=== PATIENT | male | born 1995 | race Caucasian/White ===

== ENCOUNTER → 2017-07-19 | Day surgery (SDC) | payer BC ==
[~2017-07-19] VITALS: Ht 182.9 cm; Wt 68.2 kg
[~2017-07-19] MED LIST: IBUP-103 PO; LIDOCAINE HCL 2% 2 ML VIAL (20MG/ML) ONE; MIDAZOLAM HCL 1 MG/ML 2ML VIAL ONE; ONDANSETRON INJ 2 MG/ML 2 ML VIAL ONE; PROPOFOL IV EMULSION 10 MG/ML 20 ML VIAL IV ONE
[2017-07-19 11:35] VITALS: Ht 182.9 cm; Wt 68.2 kg
--- NOTE | 2017-07-19 12:25 | Endo History and Physical ---
History & Physical Date of Service: Jul 19, 2017. Chief Complaint: NAUSEA DIARRHEA ABD PAIN Referring Physician: NONE YET History of Present Illness 22 yo CM who presents for EGD and Colonoscopy secondary to nausea, diarrhea and abdominal pain. Past Surgical History Hx Cardiac Surgery: No Hx Internal Defibrillator: No Hx Pacemaker: No Hx Abdominal Surgery: Yes (APPY) Hx of Implantable Prosthesis: No Hx Post-Op Nausea and Vomiting: No Hx Cancer Surgery: No Hx Thoracic Surgery: No Hx Orthopedic: No Hx Urinary Tract Surgery: No Family History Polyp, IBD Social History Smoking Status: Current Some Day Smoker Hx Substance Use: Yes (MARIJUANA USE OCCASIONALLY) Hx Alcohol Use: Yes (OCCASIONALLY) Allergies Coded Allergies: Amoxicillin (Verified Allergy, Unknown, childhood allergy, 07/19/17) Cefprozil (Verified Allergy, Unknown, childhood allergy, 07/19/17) Penicillins (Verified Allergy, Unknown, childhood allergy, 07/19/17) Current Medications Reported Home Medications Medications Dose Route/Sig Max Daily Dose Days Date Category Advil (Ibuprofen) 200 Mg Tab 200 Mg PO PRN 07/19/17 Reported Vital Signs Weight (Kilograms): 68.18 Height (Feet): 6 Height (Inches): 0 Date Time Temp Pulse Resp B/P (MAP) Pulse Ox O2 Delivery O2 Flow Rate FiO2 07/19/17 11:45 37.1 68 20 118/79 (92) 97 Room Air Physical Exam General Appearance: WD/WN, no apparent distress Respiratory/Chest: Auscultation: breath sounds normal Cardiovascular: Heart Auscultation: RRR Abdomen: Bowel Sounds: normal Inspection & Palpation: soft, non-distended, no tenderness, guarding & rebound Assessment and Plan Assessment: 22 yo CM who presents for EGD and Colonoscopy secondary to nausea, diarrhea and abdominal pain. Plan: Proceed with EGD and Colonoscopy.
--- NOTE | 2017-07-19 13:30 | Anesthesiology Progress Note ---
Anesthesia Post Op Note Date & Time Jul 19, 2017 at 13:30 Vital Signs Vital Signs Past 12 Hours Date Time Temp Pulse Resp B/P (MAP) Pulse Ox O2 Delivery O2 Flow Rate FiO2 07/19/17 11:45 37.1 68 20 118/79 (92) 97 Room Air Notes Mental Status: alert / awake / arousable, participated in evaluation Pt Amnestic to Procedure: Yes Nausea / Vomiting: adequately controlled Pain: adequately controlled Airway Patency, RR, SpO2: stable & adequate BP & HR: stable & adequate Hydration State: stable & adequate Anesthetic Complications: no major complications apparent
--- NOTE | 2017-07-19 13:30 | Discharge Instructions ---
Endoscopy Patient Instructions Date / Procedure(s) Performed Jul 19, 2017. Colonoscopy, EGD Allergy Information Coded Allergies: Amoxicillin (Verified Allergy, Unknown, childhood allergy, 07/19/17) Cefprozil (Verified Allergy, Unknown, childhood allergy, 07/19/17) Penicillins (Verified Allergy, Unknown, childhood allergy, 07/19/17) Discharge Date / Findings Jul 19, 2017. EGD: Normal Colonoscopy: Random colon biopsies, Sigmoid colon polyp, Internal hemorrhoids Medication Instructions OK to resume all medications today as prescribed Reported Home Medications Medications Dose Route/Sig Max Daily Dose Days Date Category Advil (Ibuprofen) 200 Mg Tab 200 Mg PO PRN 07/19/17 Reported Provider Instructions Activity Restrictions - No exercising or heavy lifting for 24 hours. - Do not drink alcohol the day of the procedure. - Do not drive a car or operate machinery until the day after the procedure. - Do not make any important decisions or sign important papers in 24 hours after the procedure. Following Day: - Return to full activity which may include returning to work/school. Diet Start your diet with liquids and light foods (jello, soup, juice, toast). Then eat your usual diet if not nauseated. Treatment For Common After Affects For mild abdominal pain, bloating, or excessive gas: - Rest - Eat lightly - Lie on right side Follow-Up Information Follow-up with NONE YET as scheduled Anesthesia Information What You Should Know You have had a procedure that required some medicine to reduce anxiety and discomfort. This treatment is called moderate sedation. After receiving the treatment, you may be sleepy, but you will be able to breathe on your own. The effects of the treatment may last for several hours. Follow these instructions along with Activity/Diet recommendations noted above: * Do NOT do anything where dizziness or clumsiness would be dangerous. * Rest quietly at home today, then you can be up and about tomorrow. * Have a responsible person stay with you the rest of today. * You may have had an I.V. today. If so, you may take the dressing off later today. Recommendations Call your doctor if: * Trouble breathing * Continuous vomiting for more than 24 hours * Temperature above 101 degrees * Severe abdominal pain or bloating * Pain not relieved by pain medicine ordered * There is increased drainage or redness from any incision * A large amount of rectal bleeding greater than 2-3 tablespoons. (If you had a polyp/s removed or have hemorrhoids, a small amount of blood - from the rectum is to be expected.) * You have any unanswered questions or concerns. IN THE EVENT OF A SERIOUS EMERGENCY, GO TO THE NEAREST EMERGENCY ROOM Your discharge instructions were prepared by provider Baltazar Mcgarry. Patient Instructions Signature Page Mateusz Mosher Patient (or Guardian) Signature/Date: I have read and understand the instructions given to me by my caregivers. Caregiver/RN/Doctor Signature/Date: The above-named patient and/or guardian has received patient instructions on this date. + Original Patient Signature Page (only) stays with chart. Please make copy for patient.
--- NOTE | 2017-07-19 13:35 | GI REPORT ---
Procedure Date: 07/19/2017 12:36 PM THIS REPORT HAS BEEN AMENDED Addendum Number: 1 Addendum Date: 07/30/2017 10:10:53 PM Gastric antrum biopsies were obtained during this exam, therefore, please refer to the pathology report. Procedure: Upper GI endoscopy Indications: Generalized abdominal pain, Nausea with vomiting Medicines: Monitored Anesthesia Care Complications: No immediate complications. Estimated Blood Loss: Estimated blood loss: none. Procedure: Pre-Anesthesia Assessment: - Prior to the procedure, a History and Physical was performed, and patient medications and allergies were reviewed. The patient's tolerance of previous anesthesia was also reviewed. The risks and benefits of the procedure and the sedation options and risks were discussed with the patient. All questions were answered, and informed consent was obtained. Prior Anticoagulants: The patient has taken no previous anticoagulant or antiplatelet agents. ASA Grade Assessment: II - A patient with mild systemic disease. After reviewing the risks and benefits, the patient was deemed in satisfactory condition to undergo the procedure. After obtaining informed consent, the endoscope was passed under direct vision. Throughout the procedure, the patient's blood pressure, pulse, and oxygen saturations were monitored continuously. The scope was introduced through the mouth, and advanced to the second part of duodenum. The upper GI endoscopy was accomplished without difficulty. The patient tolerated the procedure well. Findings: The esophagus was normal. The stomach was normal. The examined duodenum was normal. Impression: - Normal esophagus. - Normal stomach. - Normal examined duodenum. - No specimens collected. Recommendation: - Resume previous diet. - Continue present medications. - Perform a colonoscopy today. - Return to GI office as previously scheduled. Baltazar Castellano Zeferino, 07/19/2017 1:35:04 PM This report has been signed electronically. Note Initiated On: 07/19/2017 12:36 PM I attest to the content of the Intraoperative Record and orders documented therein, exceptions below Baltazar Castellano Zeferino, DO 07/30/2017 10:11:24 PM This report has been signed electronically.
--- NOTE | 2017-07-19 13:39 | GI REPORT ---
Procedure Date: 07/19/2017 12:36 PM Procedure: Colonoscopy Indications: Chronic diarrhea Medicines: Monitored Anesthesia Care Complications: No immediate complications. Estimated Blood Loss: Estimated blood loss: none. Procedure: Pre-Anesthesia Assessment: - Prior to the procedure, a History and Physical was performed, and patient medications and allergies were reviewed. The patient's tolerance of previous anesthesia was also reviewed. The risks and benefits of the procedure and the sedation options and risks were discussed with the patient. All questions were answered, and informed consent was obtained. Prior Anticoagulants: The patient has taken no previous anticoagulant or antiplatelet agents. ASA Grade Assessment: II - A patient with mild systemic disease. After reviewing the risks and benefits, the patient was deemed in satisfactory condition to undergo the procedure. After I obtained informed consent, the scope was passed under direct vision. Throughout the procedure, the patient's blood pressure, pulse, and oxygen saturations were monitored continuously. The scope was introduced through the anus and advanced to the terminal ileum. The colonoscopy was performed without difficulty. The patient tolerated the procedure well. The quality of the bowel preparation was good. The terminal ileum, ileocecal valve, appendiceal orifice, and rectum were photographed. Findings: A 5 mm polyp was found in the sigmoid colon. The polyp was sessile. The polyp was removed with a hot snare. Resection and retrieval were complete. Non-bleeding internal hemorrhoids were found during retroflexion. The hemorrhoids were small. Several random biopsies were obtained with cold forceps for histology in the entire colon. Fluid aspiration for cytology was performed in the entire colon. Impression: - One 5 mm polyp in the sigmoid colon, removed with a hot snare. Resected and retrieved. - Non-bleeding internal hemorrhoids. - Several random biopsies were obtained in the entire colon. - Fluid aspiration was performed. Recommendation: - Resume previous diet. - Continue present medications. - Repeat colonoscopy for surveillance based on pathology results. - Return to primary care physician. - Return to GI office as previously scheduled. Baltazar Mcgarry DO 07/19/2017 1:38:37 PM This report has been signed electronically. Note Initiated On: 07/19/2017 12:36 PM I attest to the content of the Intraoperative Record and orders documented therein, exceptions below
[2017-07-19 13:59] VITALS: BP 101/69; PULSE 64; O2SAT 98
== END | disposition home or self-care (01) ==
LOC: C.GI 11:20
PROVIDERS: ATTEND Internal Medicine
DX: R11.0 Nausea (principal); R19.7 Diarrhea, unspecified; K29.70 Gastritis, unspecified, without bleeding; D12.5 Benign neoplasm of sigmoid colon; K64.8 Other hemorrhoids; R10.9 Unspecified abdominal pain; Z90.89 Acquired absence of other organs; Z83.71 Family history of colonic polyps; F17.200 Nicotine dependence, unspecified, uncomplicated

== ENCOUNTER 2019-07-15 17:41 | Inpatient (IN) ==
--- OUTSIDE RECORDS SUMMARY | 2019-07-15 17:44 | External Medical Summary | Continuity of Care Document ---
:1995 Author Name Masood Jordan Address Unavailable Unavailable , Care Team Providers Name Role Phone Humaira Jordan Unavailable [email or web address] PCP, NO Unavailable Unavailable Unavailable Unavailable Unavailable Problems Gastritis (535.50) (K29.70) Internal hemorrhoids (455.0) (K64.8) Hyperplastic colon polyp (211.3) (K63.5) Nausea and vomiting (787.01) (R11.2) Epigastric pain (789.06) (R10.13) Diarrhea (787.91) (R19.7) Allergies and Adverse Reactions Amoxicillin TABS (Allergy) Cefzil (Allergy) Penicillins (Allergy) Medications Medications not documented Procedures Procedures not documented Immunizations Immunizations not documented Family History Father Family history of Diverticulitis (562.11) (K57.92) Status: A ctive Social History - Smoking Status Smoker. current status unknown Plan of Treatment Planned Observations Planned Goals not documented Results No Known Results Results not documented Encounters Appointment; Marie Merritt PA-C 05-Aug-2017 13:00 Encounter Diagnosis: Problem not documented
[2019-07-15 18:49] LABS: Basophils # (auto) 0.05 K/uL (0-0.2); Basophils % (auto) 0.4 %; Eosinophils # (auto) 0.15 K/uL (0-0.5); Eosinophils % (auto) 1.3 %; Hematocrit (blood only) 43.5 % (42-52); Hemoglobin 15.7 g/dL (14.0-18.0); Immature Granulocytes # (auto) 0.02 K/uL (0.00-0.02); Immature Granulocytes % (auto) 0.2 %; Lymphocytes # (auto) 3.34 K/uL (1.2-3.4); Lymphocytes % (auto) 28.2 %; Mean Corpuscular Hemoglobin 31.3 pg (25-34); Mean Corpuscular Hgb Conc 36.1 g/dL (32-36); Mean Corpuscular Volume 86.7 fL (80-100); Mean Platelet Volume 9.2 fL (7.4-10.4); Monocytes % (auto) 6.8 %; Neutrophils # (auto) 7.48 K/uL (1.4-6.5); Neutrophils % (auto) 63.1 %; Platelet Count 230 K/uL (130-400); RDW Coefficient of Variation 12.8 % (11.5-14.5); RDW Standard Deviation 40.9 fL (36.4-46.3); Red Blood Count 5.02 M/uL (4.7-6.1); White Blood Count 11.84 K/uL (4.8-10.8)
[2019-07-15 19:05] LABS: Albumin Level 4.7 gm/dl (3.4-5.0); BUN Creatinine Ratio 13.1 (10-20); Calcium 9.9 mg/dl (8.5-10.1); Creatinine Clr Calc Pharmacy 98.5 ml/min; Est GFR (African American) 119.3; Est GFR (Non-African American) 102.9
[2019-07-15 19:15] LABS: Acetaminophen < 2 ug/ml (10-30); Albumin Globulin Ratio 1.3 (0.9-2); Bilirubin,Total 1.7 mg/dl (0.2-1); Globulin 3.7 gm/dl (2.5-4.0); Thyroid Stimulating Hormone 0.689 uIu/ml (0.300-4.500); Total Protein 8.4 gm/dl (6.4-8.2)
[2019-07-15 19:16] LABS: Salicylate < 1.7 mg/dl (2.8-20)
[2019-07-15 20:57] LABS: Appearance Urine Clear (Clear); Bacteria Urine Automated Negative (Negative); Blood Urine Negative (Negative); Color Urine Orange; Glucose Urine UA Negative (Negative); Ketones Urine Trace (Negative); Leukocyte Esterase Urine Trace (Negative); Nitrite Urine Negative (Negative); Protein Urine 1+ (Negative); RBC Urine Automated 0-4 /hpf (0-4); Specific Gravity Urine 1.029 (1.000-1.030); Urobilinogen Urine Negative (Negative)
[2019-07-15 21:11] LABS: Amphetamines+Metham, Urine Neg (Neg); Barbiturates, Urine Neg (Neg); Benzodiazepine, Urine Neg (Neg); Cocaine, Urine Neg (Neg); MDMA (Ecstacy), Urine Neg (Neg); Methadone, Urine Neg (Neg); Opiate, Urine Neg (Neg); Phencyclidine, Urine Neg (Neg)
[2019-07-15 21:12] LABS: Bilirubin Urine Negative (Negative); Ictotest Urine Negative (Negative)
[2019-07-15] MEDS ORDERED: ALUMINUM/MAGNESIUM SUSP 30 ML UDC PO PRN (22:24)
[2019-07-15] MEDS ORDERED: SODIUM CHLORIDE 0.65% NA SOLN 45 ML (OCEAN) PRN (22:24)
[2019-07-15] MEDS ORDERED: ACETAMINOPHEN 325 MG TAB PO PRN (22:24)
[2019-07-15] MEDS ORDERED: BISMUTH SUBSALICYLATE PER ML OMNICELL CHARGE PO PRN (22:24)
[2019-07-15] MEDS ORDERED: MAGNESIUM HYDROXIDE SUSP 30 ML UDC PO PRN (22:24)
--- NOTE | 2019-07-15 23:59 | Emergency Department Note ---
Entered by Cherelle Reid acting as a scribe for History of Present Illness General Chief complaint: Mental Health Evaluation Stated complaint: MENTAL HEALTH EVAL Source: patient History of Present Illness Onset (ago): week(s) 3 Location: head, upper extremity and lower extremity Pain Consistency: + other (worsening (thoughts of depression and SI) ) Quality: + other (mental health evaluation) Exacerbated By: + other (a breakup at the beginning of summer) Associated symptoms: + other (Positive SI) The patient is a 23 year old male who presents to the ED for a mental health evaluation. He states for the past 3 weeks, he has had worsening thoughts of depression and suicidal ideations. He states he has a history of depression which worsened when he went through a breakup at the beginning of summer however for the past 3 weeks, he has had incessant thoughts of wanting to kill himself every day. He reports this morning, "he had another bad morning" and was lying in bed holding a knife to his throat. He reports this is not the first time he has had a plan and he has had "very damaging actions over the past 3 weeks." The patient states that he has had suicidal ideations in the past. He describes these as taking pills and then forcing himself to throw up, holding a knife against his throat, wrists, and stomach, and driving on the highways and thinking about driving into a tree. The patient states he normally smokes pot and 1.5 weeks ago, he stopped. Pt denies recent cutting, taking excessive doses of aspirin or other medications. Allergies Allergy/AdvReac Type Severity Reaction Status Date / Time amoxicillin Allergy Unknown childhood Verified 07/19/17 11:33 allergy cefprozil Allergy Unknown childhood Verified 07/19/17 11:33 allergy Penicillins Allergy Unknown childhood Verified 07/19/17 11:33 allergy Past Med/Surg History Medical History Depression (Chronic) Surgical History No significant past surgical history Family History Other No pertinent family history Social History Feels Safe at Home: Yes Smoking Status: Unknown if ever smoked Review of Systems See HPI for pertinent positives & negatives. and A total of 10 systems reviewed and were otherwise negative Physical Exam Vital Signs Vital Signs - 24 hr 07/15/19 17:43 07/15/19 19:53 Temperature 36.6 C Temperature Source Oral Sepsis Recent Fever Within 48 Hours No Sepsis Action Taken by Nursing No Action Required Pulse Rate 70 Respiratory Rate 18 20 Respiratory Effort / Characteristics Non-Labored Respiratory Depth Normal Respiratory Pattern Regular Blood Pressure 150/72 H Blood Pressure [Right Arm] 137/94 Blood Pressure Mean 98 Blood Pressure Mean [Right Arm] 108 Blood Pressure Position Sitting Pulse Oximetry 96 98 Oxygen Delivery Method Room Air Room Air Vital signs reviewed. General: Well-appearing male, in no significant distress. HEENT: No scleral icterus, PERRLA, neck supple. Atraumatic. Cardiovascular: Regular rate and rhythm, no extra sounds. Pulmonary: Clear to auscultation bilaterally, normal work of breathing. Abdomen: Soft, nontender, nondistended, positive bowel sounds. Musculoskeletal: Atraumatic, no peripheral edema. Neurologic: Patient awake alert and oriented x 3. Skin: Warm, dry, no rash PSYCH: Positive SI. Negative HI. Course 180: Past medical records reviewed. The patient was evaluated in room A6. A complete history and physical exam was performed. 0000: Discussed the patient's case with [facility]. The patient will be evaluated there for further management. Medical Decision Making Differential Diagnosis Differential diagnosis: Etiologies such as mood disorder, infection, hypoglycemia, electrolyte abnormalities, cardiac sources, intracerebral event, toxicologic, neurologic, as well as others were entertained. Medical Records Attestation: I reviewed the patient's medical records. Home Medications Current Medication List: was personally reviewed by me Laboratory Data Attestation: I reviewed the patient's lab results. Result diagrams: 07/15/19 18:29 07/15/19 18:29 Lab Results 07/15/19 07/15/19 07/15/19 Range/Units 18:29 18:29 18:29 WBC 11.84 H (4.8-10.8) K/uL RBC 5.02 (4.7-6.1) M/uL Hgb 15.7 (14.0-18.0) g/dL Hct 43.5 (42-52) % MCV 86.7 (80-100) fL MCH 31.3 (25-34) pg MCHC 36.1 H (32-36) g/dL RDW Std Deviation 40.9 (36.4-46.3) fL RDW Coeff of Marquis 12.8 (11.5-14.5) % Plt Count 230 (130-400) K/uL MPV 9.2 (7.4-10.4) fL Immature Gran % (Auto) 0.2 % Neut % (Auto) 63.1 % Lymph % (Auto) 28.2 % [place] % (Auto) 6.8 % Eos % (Auto) 1.3 % Baso % (Auto) 0.4 % Immature Gran # (Auto) 0.02 (0.00-0.02) K/uL Neut # (Auto) 7.48 H (1.4-6.5) K/uL Lymph # (Auto) 3.34 (1.2-3.4) K/uL [place] # (Auto) 0.80 H (0.11-0.59) K/uL Eos # (Auto) 0.15 (0-0.5) K/uL Baso # (Auto) 0.05 (0-0.2) K/uL Sodium 140 (136-145) mmol/L Potassium 4.0 (3.5-5.1) mmol/L Chloride 106 (98-107) mmol/L Carbon Dioxide 29 (21-32) mmol/L Anion Gap 6.0 (3-11) BUN 13 (7-18) mg/dl Creatinine 1.01 (0.6-1.4) mg/dl Est Cr Clr Drug Dosing 98.5 ml/min Est GFR ( Amer) 119.3 Est GFR (Non-Af Amer) 102.9 BUN/Creatinine Ratio 13.1 (10-20) Glucose 81 (70-99) mg/dl Calcium 9.9 (8.5-10.1) mg/dl Total Bilirubin 1.7 H (0.2-1) mg/dl AST 14 L (15-37) U/L ALT 21 (12-78) U/L Alkaline Phosphatase 94 (45-117) U/L Total Protein 8.4 H (6.4-8.2) gm/dl Albumin 4.7 (3.4-5.0) gm/dl Globulin 3.7 (2.5-4.0) gm/dl Albumin/Globulin Ratio 1.3 (0.9-2) TSH 0.689 (0.300-4.500) uIu/ml Urine Color Urine Appearance (Clear) Urine pH (4.5-7.5) Ur Specific [place] (1.000-1.030) Urine Protein (Negative) Urine Glucose (UA) (Negative) Urine Ketones (Negative) Urine Blood (Negative) Urine Nitrite (Negative) Urine Bilirubin (Negative) Urine Urobilinogen (Negative) Ur Leukocyte Esterase (Negative) Urine WBC (Auto) (0-5) /hpf Urine RBC (Auto) (0-4) /hpf U Hyaline Cast (Auto) (0-5) /lpf U Epithel Cells (Auto) (0-5) /lpf Urine Bacteria (Auto) (Negative) Nasal Screen MRSA (PCR) (Negative) Salicylates < 1.7 L (2.8-20) mg/dl Urine Opiates Screen (Neg) Ur Methadone, Qual (Neg) Acetaminophen < 2 L (10-30) ug/ml Urine Barbiturates (Neg) Ur Phencyclidine (PCP) (Neg) U Amphetamin/Meth Scrn (Neg) MDMA (Ecstasy) Screen (Neg) U Benzodiazepines Scrn (Neg) Ur Cocaine Metabolite (Neg) U Marijuana (THC) Screen (Neg) Ethyl Alcohol mg/dL (0-3) mg/dl 07/15/19 07/15/19 07/15/19 Range/Units 18:29 20:25 20:25 WBC (4.8-10.8) K/uL RBC (4.7-6.1) M/uL Hgb (14.0-18.0) g/dL Hct (42-52) % MCV (80-100) fL MCH (25-34) pg MCHC (32-36) g/dL RDW Std Deviation (36.4-46.3) fL RDW Coeff of Marquis (11.5-14.5) % Plt Count (130-400) K/uL MPV (7.4-10.4) fL Immature Gran % (Auto) % Neut % (Auto) % Lymph % (Auto) % [place] % (Auto) % Eos % (Auto) % Baso % (Auto) % Immature Gran # (Auto) (0.00-0.02) K/uL Neut # (Auto) (1.4-6.5) K/uL Lymph # (Auto) (1.2-3.4) K/uL [place] # (Auto) (0.11-0.59) K/uL Eos # (Auto) (0-0.5) K/uL Baso # (Auto) (0-0.2) K/uL Sodium (136-145) mmol/L Potassium (3.5-5.1) mmol/L Chloride (98-107) mmol/L Carbon Dioxide (21-32) mmol/L Anion Gap (3-11) BUN (7-18) mg/dl Creatinine (0.6-1.4) mg/dl Est Cr Clr Drug Dosing ml/min Est GFR ( Amer) Est GFR (Non-Af Amer) BUN/Creatinine Ratio (10-20) Glucose (70-99) mg/dl Calcium (8.5-10.1) mg/dl Total Bilirubin (0.2-1) mg/dl AST (15-37) U/L ALT (12-78) U/L Alkaline Phosphatase (45-117) U/L Total Protein (6.4-8.2) gm/dl Albumin (3.4-5.0) gm/dl Globulin (2.5-4.0) gm/dl Albumin/Globulin Ratio (0.9-2) TSH (0.300-4.500) uIu/ml Urine Color [place] Urine Appearance Clear (Clear) Urine pH 5.0 (4.5-7.5) Ur Specific [place] 1.029 (1.000-1.030) Urine Protein 1+ H (Negative) Urine Glucose (UA) Negative (Negative) Urine Ketones Trace H (Negative) Urine Blood Negative (Negative) Urine Nitrite Negative (Negative) Urine Bilirubin Negative (Negative) Urine Urobilinogen Negative (Negative) Ur Leukocyte Esterase Trace H (Negative) Urine WBC (Auto) 1-5 (0-5) /hpf Urine RBC (Auto) 0-4 (0-4) /hpf U Hyaline Cast (Auto) 10-30 H (0-5) /lpf U Epithel Cells (Auto) 10-20 H (0-5) /lpf Urine Bacteria (Auto) Negative (Negative) Nasal Screen MRSA (PCR) (Negative) Salicylates (2.8-20) mg/dl Urine Opiates Screen Neg (Neg) Ur Methadone, Qual Neg (Neg) Acetaminophen (10-30) ug/ml Urine Barbiturates Neg (Neg) Ur Phencyclidine (PCP) Neg (Neg) U Amphetamin/Meth Scrn Neg (Neg) MDMA (Ecstasy) Screen Neg (Neg) U Benzodiazepines Scrn Neg (Neg) Ur Cocaine Metabolite Neg (Neg) U Marijuana (THC) Screen Pos H (Neg) Ethyl Alcohol mg/dL < 3.0 (0-3) mg/dl 07/15/19 Range/Units 23:21 WBC (4.8-10.8) K/uL RBC (4.7-6.1) M/uL Hgb (14.0-18.0) g/dL Hct (42-52) % MCV (80-100) fL MCH (25-34) pg MCHC (32-36) g/dL RDW Std Deviation (36.4-46.3) fL RDW Coeff of Marquis (11.5-14.5) % Plt Count (130-400) K/uL MPV (7.4-10.4) fL Immature Gran % (Auto) % Neut % (Auto) % Lymph % (Auto) % [place] % (Auto) % Eos % (Auto) % Baso % (Auto) % Immature Gran # (Auto) (0.00-0.02) K/uL Neut # (Auto) (1.4-6.5) K/uL Lymph # (Auto) (1.2-3.4) K/uL [place] # (Auto) (0.11-0.59) K/uL Eos # (Auto) (0-0.5) K/uL Baso # (Auto) (0-0.2) K/uL Sodium (136-145) mmol/L Potassium (3.5-5.1) mmol/L Chloride (98-107) mmol/L Carbon Dioxide (21-32) mmol/L Anion Gap (3-11) BUN (7-18) mg/dl Creatinine (0.6-1.4) mg/dl Est Cr Clr Drug Dosing ml/min Est GFR ( Amer) Est GFR (Non-Af Amer) BUN/Creatinine Ratio (10-20) Glucose (70-99) mg/dl Calcium (8.5-10.1) mg/dl Total Bilirubin (0.2-1) mg/dl AST (15-37) U/L ALT (12-78) U/L Alkaline Phosphatase (45-117) U/L Total Protein (6.4-8.2) gm/dl Albumin (3.4-5.0) gm/dl Globulin (2.5-4.0) gm/dl Albumin/Globulin Ratio (0.9-2) TSH (0.300-4.500) uIu/ml Urine Color Urine Appearance (Clear) Urine pH (4.5-7.5) Ur Specific [place] (1.000-1.030) Urine Protein (Negative) Urine Glucose (UA) (Negative) Urine Ketones (Negative) Urine Blood (Negative) Urine Nitrite (Negative) Urine Bilirubin (Negative) Urine Urobilinogen (Negative) Ur Leukocyte Esterase (Negative) Urine WBC (Auto) (0-5) /hpf Urine RBC (Auto) (0-4) /hpf U Hyaline Cast (Auto) (0-5) /lpf U Epithel Cells (Auto) (0-5) /lpf Urine Bacteria (Auto) (Negative) Nasal Screen MRSA (PCR) Negative (Negative) Salicylates (2.8-20) mg/dl Urine Opiates Screen (Neg) Ur Methadone, Qual (Neg) Acetaminophen (10-30) ug/ml Urine Barbiturates (Neg) Ur Phencyclidine (PCP) (Neg) U Amphetamin/Meth Scrn (Neg) MDMA (Ecstasy) Screen (Neg) U Benzodiazepines Scrn (Neg) Ur Cocaine Metabolite (Neg) U Marijuana (THC) Screen (Neg) Ethyl Alcohol mg/dL (0-3) mg/dl Blood Pressure Blood Pressure Findings: Elevated blood pressure Blood Pressure Disposition: further management by hospitalist MDM Narrative This patient was evaluated and appeared to be in no distress. Patient was medically cleared and evaluated by the mental health protective services case worker. Patient did confirm to both myself and the protective services case worker that he had a knife to his throat earlier today. He admits to medication overdose in the past. Patient initially stated he would be willing to have inpatient treatment however became agitated and stated he "would not be imprisoned." Patient did not seem willing for treatment at this time. The 302 was completed as he denied voluntary admission. Patient was accepted to [facility] for further inpatient management. Impression & Plan Suicidal ideation Discharge Plan Visit Data Chief Complaint: Mental Health Evaluation Stated Complaint: MENTAL HEALTH EVAL ED Provider: Cat Curran Discharge Problem: Suicidal ideation Patient Disposition: Admitted As Inpatient Forms Stand Alone Forms: My [facility] Referrals Referrals: [facility] [Primary Care Provider] - The scribe's documentation has been prepared under my direction and personally reviewed by me in its entirety. I confirm that the note above accurately reflects all work, treatment, procedures, and medical decision making performed by me.
--- NOTE | 2019-07-16 09:55 | History & Physical ---
Date of Service July 16, 2019 Impression / Recommendations Impression 23-year-old single male with a history of depression and cannabis abuse who has not been in treatment for about 8 years, and presents with worsening depression, daily suicidal thoughts, and multiple suicidal gestures. He reports multiple plans for suicide and has been holding a knife to various parts of his body on a daily basis and contemplating ending his life. He has a history of multiple suicide attempts by overdose, for which he did not seek treatment. He was involuntarily committed in the ER, and is very angry about this, to the degree that we were unable to complete his assessments today. He does indicate a willingness to participate in groups, take medications, have a family meeting, and be referred for outpatient treatment, but has not yet been able to do these things and has been focused on his anger. If he is unable to make progress in treatment by tomorrow, we should consider filing for a 303 involuntary commitment with a hearing on Saturday, as he is at imminent risk for suicide if n ot adequately treated. He has been encouraged to engage in treatment and work with staff, but has been resistant to this. Inpatient treatment is medically necessary due to the severity of his symptoms and risk for suicide if discharged. (1) Suicidal ideation: Every 15 minute checks for safety Inpatient treatment as below Present on Admission?: Yes (2) Depression: 07/16 -patient meets criteria for major depressive disorder, which he reports has been ongoing for many years, and for which he has not received treatment since high school. Reports failure of 2 previous SSRI trials, so discussed a trial of venlafaxine XR. Reviewed risks, benefits, side effects, and provided him with an up-to-date patient handout on the medication. Unfortunately, he became increasingly agitated and we were unable to complete the discussion, but this can be revisited once he has calmed down. -Recommend family meeting with parents, and ask social work to obtain collateral from them regarding his past history. Suspect ASD versus PD comorbidity. -Continue involuntary commitments on a 302, consider need to file for 303 involuntary commitment. -Encourage patient to attend and participate in groups and therapy, work on healthy coping skills and discharge safety plan. -Refer for outpatient psychiatric care and therapy. Present on Admission?: Yes (3) Cannabis abuse: Patient stopped smoking marijuana recently due to concerns it was worsening mood and suicidal thoughts. Continue to provide education and support of abstinence. Avoid prescription of controlled substances. Present on Admission?: Yes Inventory Assets Strengths: Supportive friends, willing for outpatient treatment Needs: Engagement in treatment, collateral information to clarify diagnoses Risk Factors Assessment Male: Yes : Yes Health Problems: No Mental Health Diagnoses: Yes Substance Use Disorders: Yes Previous Attempt: Yes Previous Attempt; Planned: Yes Previous Attempt; Didn't Tell Anyone: Yes Family History of Suicide: Yes Previous Psychiatric Hospitalization: No Hopelessness: Yes Smoker: No Protective Factors Assessment : No Responsible for Young Children: No Employed: No Stable Relationships: No Supportive Family: Yes Good Rapport with Provider: No Psychiatric History Identifying Data AMANDA BELL is a 23-year-old M who currently lives in [place] with his ex-girlfriend, has a history of depression, cannabis abuse, and self injurious behavior, and was admitted on 07/15/19 22:24 on a 302 involuntary commitment for depression, suicidal ideation, multiple plans, and holding a knife to his throat or wrists daily. Chief Complaint "Not too happy that I'm in halfway". History of Present Illness On my assessment, he was seen withPatient presented to the ER 07/15/2019 on referral from [facility], where he was seen for an urgent appointment on referral from [facility]. He reported severe depression and "incessant suicidal thoughts," occurring on a daily basis with multiple plans, including cutting himself, overdosing on pills, or crashing his car. He told Staff that he held a knife to his throat for 30 minutes earlier in the day, and told ER staff he had been holding a knife to his throat or wrists on a daily basis. In the ER, he reported increased suicidal thoughts for the past 3 weeks, and said he was thinking about suicide almost all the time. He reported poor sleep, 4-6 hours a night on a good night. Appetite was also poor, he said he had not eaten anything for days, and BMI is 18.6. He reported worsening mood at the beginning of summer after breakup, and constant suicidal thoughts for the past 3 weeks. He stated that the morning of presentation he "had another bad morning," and was holding a knife to his throat. He reported engaging in "very damaging actions over the past 3 weeks." CBC showed WBC 11.84, CMP with elevated total bilirubin 1.7, TSH normal 0.689, UA with 1+ protein, trace ketones, trace leukocyte esterase, 10-20 epithelial ce lls; toxicology screen positive for THC, and MRSA screen negative. He said he knows he needs help for his psychiatric problems, but did not want to stay in the hospital. He was educated regarding voluntary and involuntary hospitalization, and refused recommendations for inpatient treatment, so was involuntarily committed with a petition from [facility] staff. He was angry when brought to the unit, told nursing staff that he was being sent to care home and they were jailers, and stated "I asked for help, this isn't help, I should be allowed to have my thoughts." He stared intently at staff, was posturing, pacing in the halls, stomping and talking loudly, and disrupting other patients' sleep on the unit. He refused offers of as needed medication for sleep. [facility] records indicate that he has had 2 retroactive medical withdrawals. On my assessment, he was seen with Vince Quintana, social work internet database specialist. He was partially cooperative with the assessment, but became increasingly agitated and hostile at the end. He reports worsening depression and suicidal ideation, and states he contacted [facility] because he "just wanted some advice." He states he is very angry about being hospitalized, believes he is in care home and that hospital staff are "jailers," and says there is no way he can get better when he is being forced to be here. He admits that he has been scared by how depressed he has been in his daily suicidal thoughts and acts. He states he wanted to get into outpatient treatment, and his "looked into it" for years, but has not actually scheduled with anybody and cannot explain why. He is interested in therapy and medication, and willing for outpatient treatment referrals. He describes his depression is "coming and going since high school," but states mood has been worsening since 2016. He says he medically withdrew the first semester he tried to come back to school after taking several years off, as he was unable to function. He says he has been having "very severe issues recently, and I would like to see that change. He endorses "suicidal thoughts and actions," and cannot say how he would be safe outside of the hospital. He denies clear triggers 3 weeks ago, when suicidal thoughts worsen, but reports ongoing stress due to school, and a breakup with his ex-girlfriend at the beginning of summer. The are still friends that live together, and he states that she is "going through a hard time." He is also worried about his parents, as they are "getting older, and my dad's going blind." He states his parents are aware he has depression, but not the extent to which he has been struggling recently. Reports support from multiple friends who lives locally, and states he plans to stay in school and in his apartment in [place]. He denies a history of manic symptoms, hallucinations, paranoia, OCD, PTSD, and panic. He reports anxiety that consists of worrying, which worsens when mood is worse. He denies thoughts of harming others. He states that his friends and family are protective, and that he also wants to live because if he , "I wouldn't be helping anyone else." He enjoys reading and writing. He reports willingness to discuss antidepressant medications, and sign releases for his parents. He became increasingly angry and agitated at the end of the interview, demanding to be discharged immediately, and stating that he could not get better because he was involuntarily committed and being forced to be here. Spent a significant amount of time discussing the treatment that is offered here, reviewed with him that it is exactly what he is requesting in terms of treatment, and he acknowledged this, but continued to escalate, swearing and pacing in his room. Full history unable to be obtained due to agitation and hostility. Past Psychiatric History Previous Psych History: Has not been in treatment for years, but was in therapy and thinks he saw a psychiatrist for several years in high school for depression and anxiety Current Psychiatric Diagnosis: Depression Outpatient Services: None Previous Psych Admissions: Denies History of Previous Suicide Attempt: Yes (Did not seek treatment for previous overdoses. Also reported holding a knife to his throat, risks, and stomach in the past, and thinking about driving into a tree.) Describe Attempts in the Past: 2 intentional overdoses in the past, one on #20 painkillers Past Medication Trials: Sertraline -in high school, caused side effects Unknown SSRI in high school that was ineffective Past Head Trauma/Neuro History PCP: [facility] Allergies Allergy/AdvReac Type Severity Reaction Status Date / Time amoxicillin Allergy Unknown childhood Verified 07/19/17 11:33 allergy cefprozil Allergy Unknown childhood Verified 07/19/17 11:33 allergy Penicillins Allergy Unknown childhood Verified 07/19/17 11:33 allergy Family History Family History of: Depression and Suicide Completion Family Mental Health History Comment: Father's side: Depression and suicide completion Alcohol History Hx of Alcohol Use Over the Past 12 Months: No AUDIT Total Score: 0 Smoking Use Have You Smoked or Used Tobacco Products in the Last 30 Days: Yes Smoking Status: Smoker, status unknown Substance History Hx of Prescription Med Misuse Over the Past 12 Months: No Hx of Over the Counter Med Misuse Over the Past 12 Months: No Hx of Inhalent Misuse Over the Past 12 Months: No Hx of Organic Substance Use Over the Past 12 Months: Yes (Daily marijuana use for years. Stopped 1 week ago.) Hx of Illegal Substances/Street Drug Use Over Past 12 Months: No Problems as a Result of Past Substance Use Comments: Worsening mood and suicidal thoughts Personal History Living Arrangements: Home Living Arrangements Comments: Lives with ex-girlfriend in [place]. Parents live outside of [place] Highest Grade Completed: Some College Highest Grade Completed Comment: Reportedly started [employer] in 2011, was not in school [id number], and is again a student, majoring in liberal arts. He reported his GPA is 2.62. Employment Status: Student Marital Status: Single Beliefs That Will Affect Care: None Hx Traumatic Life Events: No Patient History Medical History Depression (Chronic) Surgical History No significant past surgical history Family History Other No pertinent family history Social History Preferred Language: Welsh Communication Ability: Effective Store Clerk Required: No Beliefs That Will Affect Care: None Feels Safe at Home: Yes Smoking Status: Smoker, status unknown Review of Systems Review of Systems: Unobtainable due to mental health condition (Agitated and hostile) Physical Exam Psychiatric: Orientation: alert and cooperative (Initially partially cooperative, but progressed to agitated and uncooperative) Apperance: + did not appear stated age Very thin white male appearing older than his stated age. Long hair pulled back in a ponytail, mustache. Dressed in a white tank top and paper scrubs pants. Initially sits with arms crossed tightly over his chest, tight lipped. Towards the end of the interview stood and paced rapidly back and forth in his room Motor Behavior: steady gait and station and + psychomotor agitation Speech initially minimal, clipped answers, and later loud, with frequent expletives. Affect: + depressed affect, + irritable affect and + angry affect Mood: + depressed mood and + angry mood Thought Process: + perseveration (On not wanting to be here and anger about involuntary commitment) Thought Content: + preoccupation, + cognitive distortions, + persecution and + hopelessness Suicidal Thoughts: + reports suicidal thoughts Homicidal Thoughts: denies homicidal thoughts Hallucinations: no auditory hallucinations and no visual hallucinations Cognition: recent memory grossly intact, attention grossly intact and language grossly intact Insight: + impaired insight Judgement: + impaired judgement Vital Signs (Past 24 Hours): Last Vital Signs Temp 36.6 C 07/16/19 06:58 Pulse 77 07/16/19 06:58 Resp 16 07/16/19 06:58 BP 114/73 07/16/19 06:58 Pulse Ox 99 07/16/19 01:36 Exam Statement: A physical exam was performed in the ER prior to admission to the unit by Dr. Curran. I accept that physical as correct/medical clearance for the inpatient physical exam. Results & Data Laboratory Results Laboratory Results - last 24 hr 07/15/19 07/15/19 07/15/19 18:29 18:29 18:29 WBC 11.84 H RBC 5.02 Hgb 15.7 Hct 43.5 MCV 86.7 MCH 31.3 MCHC 36.1 H RDW Std Deviation 40.9 RDW Coeff of Marquis 12.8 Plt Count 230 MPV 9.2 Immature Gran % (Auto) 0.2 Neut % (Auto) 63.1 Lymph % (Auto) 28.2 [place] % (Auto) 6.8 Eos % (Auto) 1.3 Baso % (Auto) 0.4 Immature Gran # (Auto) 0.02 Neut # (Auto) 7.48 H Lymph # (Auto) 3.34 [place] # (Auto) 0.80 H Eos # (Auto) 0.15 Baso # (Auto) 0.05 Sodium 140 Potassium 4.0 Chloride 106 Carbon Dioxide 29 Anion Gap 6.0 BUN 13 Creatinine 1.01 Est Cr Clr Drug Dosing 98.5 Est GFR ( Amer) 119.3 Est GFR (Non-Af Amer) 102.9 BUN/Creatinine Ratio 13.1 Glucose 81 Calcium 9.9 Total Bilirubin 1.7 H AST 14 L ALT 21 Alkaline Phosphatase 94 Total Protein 8.4 H Albumin 4.7 Globulin 3.7 Albumin/Globulin Ratio 1.3 TSH 0.689 Urine Color Urine Appearance Urine pH Ur Specific Evergreen Urine Protein Urine Glucose (UA) Urine Ketones Urine Blood Urine Nitrite Urine Bilirubin Urine Urobilinogen Ur Leukocyte Esterase Urine WBC (Auto) Urine RBC (Auto) U Hyaline Cast (Auto) U Epithel Cells (Auto) Urine Bacteria (Auto) Nasal Screen MRSA (PCR) Salicylates < 1.7 L Urine Opiates Screen Ur Methadone, Qual Acetaminophen < 2 L Urine Barbiturates Ur Phencyclidine (PCP) U Amphetamin/Meth Scrn MDMA (Ecstasy) Screen U Benzodiazepines Scrn Ur Cocaine Metabolite U Marijuana (THC) Screen U Marijuana THC Carboxy Ethyl Alcohol mg/dL 07/15/19 07/15/19 07/15/19 18:29 20:25 20:25 WBC RBC Hgb Hct MCV MCH MCHC RDW Std Deviation RDW Coeff of Marquis Plt Count MPV Immature Gran % (Auto) Neut % (Auto) Lymph % (Auto) [place] % (Auto) Eos % (Auto) Baso % (Auto) Immature Gran # (Auto) Neut # (Auto) Lymph # (Auto) [place] # (Auto) Eos # (Auto) Baso # (Auto) Sodium Potassium Chloride Carbon Dioxide Anion Gap BUN Creatinine Est Cr Clr Drug Dosing Est GFR ( Amer) Est GFR (Non-Af Amer) BUN/Creatinine Ratio Glucose Calcium Total Bilirubin AST ALT Alkaline Phosphatase Total Protein Albumin Globulin Albumin/Globulin Ratio TSH Urine Color [place] Urine Appearance Clear Urine pH 5.0 Ur Specific Evergreen 1.029 Urine Protein 1+ H Urine Glucose (UA) Negative Urine Ketones Trace H Urine Blood Negative Urine Nitrite Negative Urine Bilirubin Negative Urine Urobilinogen Negative Ur Leukocyte Esterase Trace H Urine WBC (Auto) 1-5 Urine RBC (Auto) 0-4 U Hyaline Cast (Auto) 10-30 H U Epithel Cells (Auto) 10-20 H Urine Bacteria (Auto) Negative Nasal Screen MRSA (PCR) Salicylates Urine Opiates Screen Neg Ur Methadone, Qual Neg Acetaminophen Urine Barbiturates Neg Ur Phencyclidine (PCP) Neg U Amphetamin/Meth Scrn Neg MDMA (Ecstasy) Screen Neg U Benzodiazepines Scrn Neg Ur Cocaine Metabolite Neg U Marijuana (THC) Screen Pos H U Marijuana THC Carboxy Ethyl Alcohol mg/dL < 3.0 07/15/19 07/15/19 20:25 23:21 WBC RBC Hgb Hct MCV MCH MCHC RDW Std Deviation RDW Coeff of Marquis Plt Count MPV Immature Gran % (Auto) Neut % (Auto) Lymph % (Auto) [place] % (Auto) Eos % (Auto) Baso % (Auto) Immature Gran # (Auto) Neut # (Auto) Lymph # (Auto) [place] # (Auto) Eos # (Auto) Baso # (Auto) Sodium Potassium Chloride Carbon Dioxide Anion Gap BUN Creatinine Est Cr Clr Drug Dosing Est GFR ( Amer) Est GFR (Non-Af Amer) BUN/Creatinine Ratio Glucose Calcium Total Bilirubin AST ALT Alkaline Phosphatase Total Protein Albumin Globulin Albumin/Globulin Ratio TSH Urine Color Urine Appearance Urine pH Ur Specific Evergreen Urine Protein Urine Glucose (UA) Urine Ketones Urine Blood Urine Nitrite Urine Bilirubin Urine Urobilinogen Ur Leukocyte Esterase Urine WBC (Auto) Urine RBC (Auto) U Hyaline Cast (Auto) U Epithel Cells (Auto) Urine Bacteria (Auto) Nasal Screen MRSA (PCR) Negative Salicylates Urine Opiates Screen Ur Methadone, Qual Acetaminophen Urine Barbiturates Ur Phencyclidine (PCP) U Amphetamin/Meth Scrn MDMA (Ecstasy) Screen U Benzodiazepines Scrn Ur Cocaine Metabolite U Marijuana (THC) Screen U Marijuana THC Carboxy Pending Ethyl Alcohol mg/dL Current Inpatient Medications Current Inpatient Medications: Current Inpatient Medications Acetaminophen (Tylenol) 650 mg PO Q4H PRN PRN Reason: Headache or Minor Fever Stop: 08/14/19 22:23 Al Hydrox/Mg Hydrox/Simethicone (Maalox) 30 ml PO Q4H PRN PRN Reason: GI Upset Stop: 08/14/19 22:23 Bismuth Subsalicylate (Kaopectate) 15 ml PO PRN PRN PRN Reason: Loose Stool Stop: 08/14/19 22:23 Hydroxyzine HCl (Vistaril) 50 mg PO HSZ PRN PRN Reason: Insomnia Stop: 08/14/19 22:23 Hydroxyzine HCl (Vistaril) 25 mg PO Q4H PRN PRN Reason: Anxiety Stop: 08/14/19 22:23 Magnesium Hydroxide (Milk Of Magnesia) 30 ml PO DAILY PRN PRN Reason: Constipation Stop: 08/14/19 22:23 Sodium Chloride ([place] Nasal) 1 - 2 sprays NA PRN PRN PRN Reason: Nasal Dryness/Congestion Stop: 08/14/19 22:23 CPT Code CPT Code Initial Hospital Care: [id number]
[2019-07-17] MEDS ORDERED: VENLAFAXINE HCL 37.5 MG TAB PO STA (15:14)
--- NOTE | 2019-07-17 16:00 | Psychiatric Progress Note ---
Date of Service July 17, 2019 Impression / Recommendations Impression 23-year-old single male with a history of depression and cannabis abuse who has not been in treatment for about 8 years, and presents with worsening depression, daily suicidal thoughts, and multiple suicidal gestures. As noted above, the patient notes that he has had intermittent suicidal thoughts since he was in high school. He notes that he is never completely free of suicidal thoughts for any length of time, but often the thoughts are only passive or fleeting. His concern in seeking treatment recently was because he was experiencing daily suicidal thoughts with specific thoughts of killing himself by self cutting and exsanguination and toxic overdose. He also acknowledges that he does have a history of multiple suicide attempts, all by medication overdose. However, he reports that in each instance it is the act, itself, that he finds satisfying and, accordingly, and each instance he immediately self-induced emesis. He has not otherwise intentionally caused or attempted to cause physical harm to himself. The patient reports that as a teenager he was tried on 2 psychiatric medications. He only recalls the name of 1 of them, namely sertraline. He said that he did not like sertraline because it caused his thinking to feel "kind of fuzzy." The patient also notes that he had tried individual therapy as a teenager, and did not find the therapy to be in any way helpful to him. Nevertheless, he knows that given his history of recurrent depression and suicidal thoughts psychiatric medications are generally indicated. He also tells me that he is again interested in seeking individual psychotherapy in order to process issues specific to his feeling disconnected from society, feeling apart from the mainstream, experiencing self doubt and self recrimination, and to work on developing a plan for achieving personal goals. Today, the patient reports that his mood has already improved somewhat and that he is feeling better. The patient also notes that he feels somewhat embarrassed about the fact that he was so unpleasant during his initial period in the hospital, and says that he believes it was because he felt betrayed by the fact that he ended up confined in a locked unit when, in fact, his hope is been simply to be evaluated and referred for treatment, even intensive treatment, but not on a locked unit. (1) Suicidal ideation: Every 15 minute checks for safety Inpatient treatment as below 07/17/19 -Today, the patient reports that he has not had any thoughts of suicide and that, in fact, this is the first day in approximately 3 weeks that that he has not had thoughts of suicide. He reports that he did have thoughts of suicide yesterday, but was able to dismiss the thoughts quickly and "move on" to other thoughts. -He notes a long-standing history of suicidal thoughts, and tells us that he is never completely free of suicidal thoughts, at least fleeting suicidal thoughts, even when his mood is not depressed. -In addition, the patient reports today that although he has made suicide attempts in the past, he feels that it is the actual act of "ending it all" (rather than any real consideration of no longer existing) that appeals to him. And, within this context, he notes that in each instance in which she has taken an overdose he has promptly induced emesis. (2) Depression: 07/16 -patient meets criteria for major depressive disorder, which he reports has been ongoing for many years, and for which he has not received treatment since high school. Reports failure of 2 previous SSRI trials, so discussed a trial of venlafaxine XR. Reviewed risks, benefits, side effects, and provided him with an up-to-date patient handout on the medication. Unfortunately, he became increasingly agitated and we were unable to complete the discussion, but this can be revisited once he has calmed down. -Recommend family meeting with parents, and ask social work to obtain collateral from them regarding his past history. Suspect ASD versus PD comorbidity. -Continue involuntary commitments on a 302, consider need to file for 303 involuntary commitment. -Encourage patient to attend and participate in groups and therapy, work on healthy coping skills and discharge safety plan. -Refer for outpatient psychiatric care and therapy. 07/17/19 -The patient reports recurrent episodes of depression that last, typically, a number of months, but generally resolved, at least briefly. Of particular note today is his report that on at least 3 occasions in the past he has had short- lived episodes during which she has parents increased productivity, expansive mood, decreased desire for sleep, increased energy, and rapid thoughts. For example, he reports that on at least one such occasion he sat down and wrote approximately 20,000 words of a novel in a single sitting. When asked if he had subsequently reviewed his writing, he said that the writing "made sense," but that what he produced might not have been as good as he thought it was when he was riding it. -We discussed treatment options for depression as well as treatment options for cyclothymia. He indicates that he feels that his primary problem is depression and notes that although he has had periods as described above of increased productivity, he cannot associate these periods with any significant dysfunction in any sphere of endeavor. Accordingly, his primary object is to be treated for depression. -We discussed various medication options, and agreed to a trial of venlafaxine 37.5 mg. We will provide a test dose today and, as tolerated continue venlafaxine 37.5 mg twice a day beginning tomorrow. -The patient is quite intelligent and is certainly a candidate for individual psychotherapy. However, he does tend to intellectualize, and we agree that this may need to be addressed in psychotherapy. (3) Cannabis abuse: Patient stopped smoking marijuana recently due to concerns it was worsening mood and suicidal thoughts. Continue to provide education and support of abstinence. Avoid prescription of controlled substances. Inventory Assets Strengths: Supportive friends, willing for outpatient treatment Needs: Engagement in treatment, collateral information to clarify diagnoses Risk Factors Assessment Male: Yes : Yes Health Problems: No Mental Health Diagnoses: Yes Substance Use Disorders: Yes Previous Attempt: Yes Previous Attempt; Planned: Yes Previous Attempt; Didn't Tell Anyone: Yes Family History of Suicide: Yes Previous Psychiatric Hospitalization: No Hopelessness: Yes Smoker: No Protective Factors Assessment : No Responsible for Young Children: No Employed: No Stable Relationships: No Supportive Family: Yes Good Rapport with Provider: No Interval History Chief Complaint "Suicidal Thoughts". Review of Systems Sleep Information Total Hours of Sleep: 6 Sleep Comments: initially appeared to awaken on rounds when his bedroom door was opened and light entered the room. he did not acknowledge wakefulness but stirred in bed. Meal Information Percent Meal Consumed - Breakfast: 50 Percent Meal Consumed - Lunch: 100 Percent Meal Consumed - Dinner: 0 Nutrition Comment: pt. asleep Subjective Subjective Patient was seen & assessed and interval progress reviewed with treatment team. I met individually with the patient in order to assess his current mental status, evaluate his response to treatment, make any necessary changes in his treatment regimen and coordination with the patient, and address issues and concerns that may arise. The patient began by apologizing for the fact that he had been somewhat difficult during the initial period of his stay in the hospital. He explains that he had been surprised when he was told that his choice was either to enter the hospital voluntarily or to be involuntarily committed. The patient notes that his surprise came from the fact that he had not expected that he would be confined to the hospital but, instead, will be undergoing an evaluation and then referred for outpatient treatment. At the same time, the patient acknowledges that he was having daily suicidal thoughts for 3 weeks and these thoughts had included at least theoretical plans of how he would harm himself. He also acknowledges that he understands that the decision to admit him was based on safety concerns, and his distress he believes had more to do with the fact that he is now feeling "confined," even though he feels that he is receiving useful treatment. A review of the patient's history with the patient revealed that he began to be aware of his feelings of depression during his middle teenage years, and first became aware of suicidal thoughts while still in high school. He says that the thoughts are never disaggregated from at least general thoughts of how he might actually harm himself, such as by overdose, self cutting, etc. The patient also acknowledges that he has has a history of making actual suicide attempts by overdose, but adds that in each of these instances he has induced emesis and generally has not come to medical attention as a result. He also says there have been periods of time during which she has held a knife or other sharp object to his wrists, but has not actually inflicted any form of injury. The patient's suicidal thoughts occurred within the context of recurrent symptoms of depression. These include depressed mood, existential despair, difficulty concentrating, anhedonia, sleep impairment, and anergia. He adds that he tends not to consider himself as not existing following a suicide attempt but, instead, formulates the thoughts of suicide (and, in the past the actual self harmful acts) with relief from emotional distress. Although the patient notes that sometimes his episodes of depression are precipitated by circumstances, generally the depression episodes tend to occur without any clear precipitant, apart from the fact that he often feels somewhat apart from the mainstream of society. He also reports that he comes from a highly successful family, at least academically and in terms of careers. For example, the patient's parents are reportedly both college professors. He also notes that his family includes professionals, such as doctors, and he describes himself as being somewhat of an outlier and that he has not achieved academic, professional, or financial success. The patient tells me today that he is never completely free of suicidal thoughts, and he may be depressed for many months at the time, but even when not particularly dep ressed he still will occasionally have fleeting thoughts of suicide. He became alarmed and sought help because his thoughts of suicide were occurring daily and he was afraid that he might actually act on them. An additional issue that was raised today is the fact the patient says that there have been at least 3 episodes in his life during which she has experienced increased productivity, increased or elevated mood, expansive mood, increased energy, and decreased desire for sleep. He says that during these periods of time he is genuinely productive (he enjoys writing books and recalls writing 20,000 words at a single sitting on at least one occasion). Further, the patient reports that there is a history of bipolar disorder and his extended family. He tends to be solitary, including when feeling increased energy and increased productivity. We discussed cyclothymia and hypomania. The patient does not indicate that his "productive periods" have substantially interfered with his function in any sphere of endeavor, although he notes that he tends to be solitary even when his mood is elevated or more expansive. Physical Exam Psychiatric Orientation: alert and oriented x 3 Apperance: appropriately dressed and appropriately groomed Eye Contact: + poor eye contact Motor Behavior: steady gait and station Speech: normal rate/rhythm/volume of speech Serious and thoughtful. Mood: + depressed mood Patient reports that his depression has improved since entering the unit and that he is feeling more optimistic. Thought Process: linear/logical thought process Thought Content: reality based without delusions The patient tends to use intellectualization and rhetoric as defenses. He often makes self depreciating comments and periodically make statements such as "I do not want to cause you any problems," or "I hope this is not going to make things more complicated for you." The patient reports that he has had no thoughts of suicide today. He reports that he did have a fleeting thought of suicide yesterday, but was able to fairly quickly dismissed it. He cites this is evidence of improvement given that for the past 3 weeks he had been having Homicidal Thoughts: denies homicidal thoughts Hallucinations: no auditory hallucinations Cognition: recent memory grossly intact, remote memory grossly intact, attention grossly intact and language grossly intact Estimated Intelligence: + above average estimated intelligence Insight: good insight Judgement: good judgement Vital Signs (Past 24 Hours) Last Vital Signs Temp 36.6 C 07/17/19 07:05 Pulse 68 07/17/19 07:05 Resp 14 07/17/19 07:05 BP 112/71 07/17/19 07:05 Pulse Ox 99 07/16/19 01:36 Results & Data Current Inpatient Medications Current Inpatient Medications: Current Inpatient Medications Acetaminophen (Tylenol) 650 mg PO Q4H PRN PRN Reason: Headache or Minor Fever Stop: 08/14/19 22:23 Al Hydrox/Mg Hydrox/Simethicone (Maalox) 30 ml PO Q4H PRN PRN Reason: GI Upset Stop: 08/14/19 22:23 Bismuth Subsalicylate (Kaopectate) 15 ml PO PRN PRN PRN Reason: Loose Stool Stop: 08/14/19 22:23 Hydroxyzine HCl (Vistaril) 50 mg PO HSZ PRN PRN Reason: Insomnia Stop: 08/14/19 22:23 Hydroxyzine HCl (Vistaril) 25 mg PO Q4H PRN PRN Reason: Anxiety Stop: 08/14/19 22:23 Magnesium Hydroxide (Milk Of Magnesia) 30 ml PO DAILY PRN PRN Reason: Constipation Stop: 08/14/19 22:23 Sodium Chloride (Wiseman Nasal) 1 - 2 sprays NA PRN PRN PRN Reason: Nasal Dryness/Congestion Stop: 08/14/19 22:23 Venlafaxine HCl (Effexor) 37.5 mg PO BID ROCKY Stop: 08/17/19 08:59 Mental Health & Subst Abuse Tx Psychiatrist Name of Psychiatrist: [facility] Psychiatrist's Date of Appointment with Psychiatrist: 08/06/19 Time of Appointment with Psychiatrist: 2:30 pm Psychiatric Appointment Comment: [id number] [facility], [place], [place] Therapist Name of Therapist: Denies Field Support Specialist Name of Field Support Specialist: Denies Post Discharge Appointments Primary Care Physician Name Of Family Doctor: Denies CPT Code CPT Code 56375
[2019-07-18] MEDS: VENLAFAXINE HCL 37.5 MG TAB PO SCH ×2 (08:53→21:15)
--- NOTE | 2019-07-18 15:14 | Psychiatric Progress Note ---
Date of Service July 18, 2019 Impression / Recommendations Impression 23-year-old single male with a history of depression and cannabis abuse who has not been in treatment for about 8 years, and presents with worsening depression, daily suicidal thoughts, and multiple suicidal gestures. As noted above, the patient notes that he has had intermittent suicidal thoughts since he was in high school. He notes that he is never completely free of suicidal thoughts for any length of time, but often the thoughts are only passive or fleeting. His concern in seeking treatment recently was because he was experiencing daily suicidal thoughts with specific thoughts of killing himself by self cutting and exsanguination and toxic overdose. He also acknowledges that he does have a history of multiple suicide attempts, all by medication overdose. However, he reports that in each instance it is the act, itself, that he finds satisfying and, accordingly, and each instance he immediately self-induced emesis. He has not otherwise intentionally caused or attempted to cause physical harm to himself. The patient reports that as a teenager he was tried on 2 psychiatric medications. He only recalls the name of 1 of them, namely sertraline. He said that he did not like sertraline because it caused his thinking to feel "kind of fuzzy." The patient also notes that he had tried individual therapy as a teenager, and did not find the therapy to be in any way helpful to him. Nevertheless, he knows that given his history of recurrent depression and suicidal thoughts psychiatric medications are generally indicated. He also tells me that he is again interested in seeking individual psychotherapy in order to process issues specific to his feeling disconnected from society, feeling apart from the mainstream, experiencing self doubt and self recrimination, and to work on developing a plan for achieving personal goals. As of 07/17/19, the patient reports that his mood has already improved somewhat and that he is feeling better. The patient also notes that he feels somewhat em barrassed about the fact that he was so unpleasant during his initial period in the hospital, and says that he believes it was because he felt betrayed by the fact that he ended up confined in a locked unit when, in fact, his hope is been simply to be evaluated and referred for treatment, even intensive treatment, but not on a locked unit. As of 07/[address] Parr, and now 07/18 with this provider is resigned to completing the admission, getting his aftercare established and trying the medications and is not longer actively angry although he still disagrees with the admission. THis provider does wonder if he has a [employer] type personality where he intelletualizes and shows only patterned expressions in a controlled fashion and if isolation of affect may put him at risk for getting emotionally overloaded and then culminating in an act of self harm. Further I agree with Dr Parr would need to monitor for bioplar spectrum given some energized times (see 07/17/19 progress note for these specifics) (1) Suicidal ideation: Every 15 minute checks for safety Inpatient treatment as below 07/17/19 -Today, the patient reports that he has not had any thoughts of suicide and that, in fact, this is the first day in approximately 3 weeks that that he has not had thoughts of suicide. He reports that he did have thoughts of suicide yesterday, but was able to dismiss the thoughts quickly and "move on" to other thoughts. -He notes a long-standing history of suicidal thoughts, and tells us that he is never completely free of suicidal thoughts, at least fleeting suicidal thoughts, even when his mood is not depressed. -In addition, the patient reports today that although he has made suicide attempts in the past, he feels that it is the actual act of "ending it all" (rather than any real consideration of no longer existing) that appeals to him. And, within this context, he notes that in each instance in which she has taken an overdose he has promptly induced emesis. 07/18 - continue observation to assure that his behavior and verablization are congruent given his past history of not disclosing distress or SI, or SA's. TO date the improvement seems genuine. (2) Depression: 07/16 -patient meets criteria for major depressive disorder, which he reports has been ongoing for many years, and for which he has not received treatment since high school. Reports failure of 2 previous SSRI trials, so discussed a trial of venlafaxine XR. Reviewed risks, benefits, side effects, and provided him with an up-to-date patient handout on the medication. Unfortunately, he became increasingly agitated and we were unable to complete the discussion, but this can be revisited once he has calmed down. -Recommend family meeting with parents, and ask social work to obtain collateral from them regarding his past history. Suspect ASD versus PD comorbidity. -Continue involuntary commitments on a 302, consider need to file for 303 involuntary commitment. -Encourage patient to attend and participate in groups and therapy, work on healthy coping skills and discharge safety plan. -Refer for outpatient psychiatric care and therapy. 07/17/19 -The patient reports recurrent episodes of depression that last, typically, a number of months, but generally resolved, at least briefly. Of particular note today is his report that on at least 3 occasions in the past he has had short- lived episodes during which she has parents increased productivity, expansive mood, decreased desire for sleep, increased energy, and rapid thoughts. For example, he reports that on at least one such occasion he sat down and wrote approximately 20,000 words of a novel in a single sitting. When asked if he had subsequently reviewed his writing, he said that the writing "made sense," but that what he produced might not have been as good as he thought it was when he was riding it. -We discussed treatment options for depression as well as treatment options for cyclothymia. He indicates that he feels that his primary problem is depression and notes that although he has had periods as described above of increased productivity, he cannot associate these periods with any significant dysfunction in any sphere of endeavor. Accordingly, his primary object is to be treated for depression. -We discussed various medication options, and agreed to a trial of venlafaxine 37.5 mg. We will provide a test dose today and, as tolerated continue venlafaxine 37.5 mg twice a day beginning tomorrow. -The patient is quite intelligent and is certainly a candidate for individual psychotherapy. However, he does tend to intellectualize, and we agree that this may need to be addressed in psychotherapy. 07/18 - continue effexor IR bid at this time watching for tolerabiltiy and mood switching, could convert to XR if he shows tolerability for ease of dosing, watch sleep concerns he is aware hydroxyzine is available - will need to set up aftercare appt on Saturday when outpatient offices open for psychiatry and psychotherapy (3) Cannabis abuse: Patient stopped smoking marijuana recently due to concerns it was worsening mood and suicidal thoughts. Continue to provide education and support of abstinence. Avoid prescription of controlled substances. Inventory Assets Strengths: Supportive friends, willing for outpatient treatment Needs: Engagement in treatment, collateral information to clarify diagnoses Risk Factors Assessment Male: Yes : Yes Health Problems: No Mental Health Diagnoses: Yes Substance Use Disorders: Yes Previous Attempt: Yes Previous Attempt; Planned: Yes Previous Attempt; Didn't Tell Anyone: Yes Family History of Suicide: Yes Previous Psychiatric Hospitalization: No Hopelessness: Yes Smoker: No Protective Factors Assessment : No Responsible for Young Children: No Employed: No Stable Relationships: No Supportive Family: Yes Good Rapport with Provider: No Interval History Chief Complaint "I know why I am here but I would like to go". Review of Systems Sleep Information Total Hours of Sleep: 4.25 Sleep Comments: awake on 0200, 0330, 0530 rounds. awakens with the light shining in on him from the hallway Meal Information Percent Meal Consumed - Breakfast: 100 Percent Meal Consumed - Lunch: 90 Percent Meal Consumed - Dinner: 80 Nutrition Comment: pt. asleep Subjective Subjective Patient was seen & assessed and interval progress reviewed with treatment team THe patient per treatement teami son 302 set to on Friday 07/20 at 2109. He is improved no longer demonstrating belligerance for his admission although able to verbalize that while he disagrees with the admission he understands why he was admitted. He did have emesis after the velafaxine IR 37.5mg last evening but has tolerated the dose this AM set for bid dosing at this time. He is reported as being "very intellectual" but also in groups is able to be empathetic to others. He is pending referral for outpatient care and has family meeting today at 11am Met with patient he states he is doing "better after the family meeting, it went better than I expected" He does use very precise language to describe how he is feeling and characteristic sighs and pauses and non-verbal inflection with his eyes. He is able to iterate that he is in the hospital for further behavioral obs ervation given his recent suicidality, and historical concerns of suicdal behaviors but denies SI now and is wanting to go home when staff deems it appropriate. He was anxious prior to the family meeting but it went well and he is now not anxious. He denies feeling irritable but does feel bored since being here. He does report trouble falling asleep but once asleep is able to stay asleep and this is not new to the unit it was happening at home. He notes he is willing to try therapy again despite negative experience in the past. He denies SE to effexor this AM and ate his breakfast and lunch. ROS: denies GIupset, denies constitutional symptoms, and denies other psychiatric sx than mentioned above. Physical Exam Psychiatric Orientation: alert and oriented x 3 Apperance: appropriately dressed Eye Contact: good eye contact Motor Behavior: steady gait and station stoic manner, wtih very patterned/controlled manner of engaging with certain non-verbal eye movements to show heightened emotion in the absence of other fa cial movements concurrently (e.g. raised opened eyes but no smile, or if showing dislike having an eye role but otherwise vacant expression) Speech: normal rate/rhythm/volume of speech even, controlled tone Affect: + blunted affect "okay" Thought Process: goal directed thought process and linear/logical thought process very logical and controlled absent of emotional terms, very controlled manner of relating in speach, tone and mannerisms and content of thought Suicidal Thoughts: denies suicidal thoughts Homicidal Thoughts: denies homicidal thoughts Hallucinations: no auditory hallucinations and no visual hallucinations Cognition: recent memory grossly intact Estimated Intelligence: average estimated intelligence Insight: good insight Judgement: good judgement Vital Signs (Past 24 Hours) Last Vital Signs Temp 36.6 C 07/18/19 06:00 Pulse 102 H 07/18/19 06:33 Resp 16 07/18/19 06:00 BP 117/74 07/18/19 06:33 Pulse Ox 99 07/16/19 01:36 Results & Data Laboratory Results Laboratory Results - last 24 hr 07/15/19 20:25 U Marijuana THC Carboxy 1930 A Current Inpatient Medications Current Inpatient Medications: Current Inpatient Medications Acetaminophen (Tylenol) 650 mg PO Q4H PRN PRN Reason: Headache or Minor Fever Stop: 08/14/19 22:23 Al Hydrox/Mg Hydrox/Simethicone (Maalox) 30 ml PO Q4H PRN PRN Reason: GI Upset Stop: 08/14/19 22:23 Bismuth Subsalicylate (Kaopectate) 15 ml PO PRN PRN PRN Reason: Loose Stool Stop: 08/14/19 22:23 Hydroxyzine HCl (Vistaril) 50 mg PO HSZ PRN PRN Reason: Insomnia Stop: 08/14/19 22:23 Hydroxyzine HCl (Vistaril) 25 mg PO Q4H PRN PRN Reason: Anxiety Stop: 08/14/19 22:23 Magnesium Hydroxide (Milk Of Magnesia) 30 ml PO DAILY PRN PRN Reason: Constipation Stop: 08/14/19 22:23 Sodium Chloride (Gentry Nasal) 1 - 2 sprays NA PRN PRN PRN Reason: Nasal Dryness/Congestion Stop: 08/14/19 22:23 Venlafaxine HCl (Effexor) 37.5 mg PO BID ROCKY Stop: 08/17/19 08:59 Last Admin: 07/18/19 08:53 Dose: 37.5 mg Documented by: Mental Health & Subst Abuse Tx Psychiatrist Name of Psychiatrist: [facility]'s Date of Appointment with Psychiatrist: 08/06/19 Time of Appointment with Psychiatrist: 2:30 pm Psychiatric Appointment Comment: [address], [place], [place] Therapist Name of Therapist: Denies Flute Teacher Name of Flute Teacher: Denies Post Discharge Appointments Primary Care Physician Name Of Family Doctor: Denies CPT Code CPT Code 42970
[2019-07-19] MEDS: VENLAFAXINE HCL 37.5 MG TAB PO SCH ×2 (08:39→21:27)
--- NOTE | 2019-07-19 09:44 | Psychiatric Progress Note ---
Date of Service July 19, 2019 Impression / Recommendations Impression 23-year-old single male with a history of depression and cannabis abuse who has not been in treatment for about 8 years, and presents with worsening depression, daily suicidal thoughts, and multiple suicidal gestures. As noted above, the patient notes that he has had intermittent suicidal thoughts since he was in high school. He notes that he is never completely free of suicidal thoughts for any length of time, but often the thoughts are only passive or fleeting. His concern in seeking treatment recently was because he was experiencing daily suicidal thoughts with specific thoughts of killing himself by self cutting and exsanguination and toxic overdose. He also acknowledges that he does have a history of multiple suicide attempts, all by medication overdose. However, he reports that in each instance it is the act, itself, that he finds satisfying and, accordingly, and each instance he immediately self-induced emesis. He has not otherwise intentionally caused or attempted to cause physical harm to himself. The patient reports that as a teenager he was tried on 2 psychiatric medications. He only recalls the name of 1 of them, namely sertraline. He said that he did not like sertraline because it caused his thinking to feel "kind of fuzzy." The patient also notes that he had tried individual therapy as a teenager, and did not find the therapy to be in any way helpful to him. Nevertheless, he knows that given his history of recurrent depression and suicidal thoughts psychiatric medications are generally indicated. He also tells me that he is again interested in seeking individual psychotherapy in order to process issues specific to his feeling disconnected from society, feeling apart from the mainstream, experiencing self doubt and self recrimination, and to work on developing a plan for achieving personal goals. As of 07/17/19, the patient reports that his mood has already improved somewhat and that he is feeling better. The patient also notes that he feels somewhat em barrassed about the fact that he was so unpleasant during his initial period in the hospital, and says that he believes it was because he felt betrayed by the fact that he ended up confined in a locked unit when, in fact, his hope is been simply to be evaluated and referred for treatment, even intensive treatment, but not on a locked unit. As of 07/[address] Parr, and now 07/18 with this provider is resigned to completing the admission, getting his aftercare established and trying the medications and is not longer actively angry although he still disagrees with the admission. THis provider does wonder if he has a [employer] type personality where he intelletualizes and shows only patterned expressions in a controlled fashion and if isolation of affect may put him at risk for getting emotionally overloaded and then culminating in an act of self harm. Further I agree with Dr Parr would need to monitor for bioplar spectrum given some energized times (see 07/17/19 progress note for these specifics) (1) Suicidal ideation: Every 15 minute checks for safety Inpatient treatment as below 07/17/19 -Today, the patient reports that he has not had any thoughts of suicide and that, in fact, this is the first day in approximately 3 weeks that that he has not had thoughts of suicide. He reports that he did have thoughts of suicide yesterday, but was able to dismiss the thoughts quickly and "move on" to other thoughts. -He notes a long-standing history of suicidal thoughts, and tells us that he is never completely free of suicidal thoughts, at least fleeting suicidal thoughts, even when his mood is not depressed. -In addition, the patient reports today that although he has made suicide attempts in the past, he feels that it is the actual act of "ending it all" (rather than any real consideration of no longer existing) that appeals to him. And, within this context, he notes that in each instance in which she has taken an overdose he has promptly induced emesis. 07/18 - continue observation to assure that his behavior and verbalization are congruent given his past history of not disclosing distress or SI, or SA's. TO date the improvement seems genuine. (2) Depression: 07/16 -patient meets criteria for major depressive disorder, which he reports has been ongoing for many years, and for which he has not received treatment since high school. Reports failure of 2 previous SSRI trials, so discussed a trial of venlafaxine XR. Reviewed risks, benefits, side effects, and provided him with an up-to-date patient handout on the medication. Unfortunately, he became increasingly agitated and we were unable to complete the discussion, but this can be revisited once he has calmed down. -Recommend family meeting with parents, and ask social work to obtain collateral from them regarding his past history. Suspect ASD versus PD comorbidity. -Continue involuntary commitments on a 302, consider need to file for 303 involuntary commitment. -Encourage patient to attend and participate in groups and therapy, work on healthy coping skills and discharge safety plan. -Refer for outpatient psychiatric care and therapy. 07/17/19 -The patient reports recurrent episodes of depression that last, typically, a number of months, but generally resolved, at least briefly. Of particular note today is his report that on at least 3 occasions in the past he has had short- lived episodes during which she has parents increased productivity, expansive mood, decreased desire for sleep, increased energy, and rapid thoughts. For example, he reports that on at least one such occasion he sat down and wrote approximately 20,000 words of a novel in a single sitting. When asked if he had subsequently reviewed his writing, he said that the writing "made sense," but that what he produced might not have been as good as he thought it was when he was riding it. -We discussed treatment options for depression as well as treatment options for cyclothymia. He indicates that he feels that his primary problem is depression and notes that although he has had periods as described above of increased productivity, he cannot associate these periods with any significant dysfunction in any sphere of endeavor. Accordingly, his primary object is to be treated for depression. -We discussed various medication options, and agreed to a trial of venlafaxine 37.5 mg. We will provide a test dose today and, as tolerated continue venlafaxine 37.5 mg twice a day beginning tomorrow. -The patient is quite intelligent and is certainly a candidate for individual psychotherapy. However, he does tend to intellectualize, and we agree that this may need to be addressed in psychotherapy. 07/18 - continue effexor IR bid at this time watching for tolerabiltiy and mood switching, could convert to XR if he shows tolerability for ease of dosing, watch sleep concerns he is aware hydroxyzine is available - will need to set up aftercare appt on Saturday when outpatient offices open for psychiatry and psychotherapy 07/19 - will change venlafaxine from IR to XR on Friday 07/20 as he is tolerating it - gave information on sleep kyle, and Shelly Cohn IS personality as a point of learning and conversation and discussion of ways isolation of affect helps him but how working in therapy on developing his "emoting muscle" may be worth the time and effort so he can use it when he needs/wants to. Handouts given (3) Cannabis abuse: Patient stopped smoking marijuana recently due to concerns it was worsening mood and suicidal thoughts. Continue to provide education and support of abstinence. Avoid prescription of controlled substances. Inventory Assets Strengths: Supportive friends, willing for outpatient treatment Needs: Engagement in treatment, collateral information to clarify diagnoses Risk Factors Assessment Male: Yes : Yes Health Problems: No Mental Health Diagnoses: Yes Substance Use Disorders: Yes Previous Attempt: Yes Previous Attempt; Planned: Yes Previous Attempt; Didn't Tell Anyone: Yes Family History of Suicide: Yes Previous Psychiatric Hospitalization: No Hopelessness: Yes Smoker: No Protective Factors Assessment : No Responsible for Young Children: No Employed: No Stable Relationships: No Supportive Family: Yes Good Rapport with Provider: No Interval History Chief Complaint "I think things are about the same". Review of Systems Sleep Information Total Hours of Sleep: 6.75 Sleep Comments: awake on 0200, 0330, 0530 rounds. awakens with the light shining in on him from the hallway Meal Information Percent Meal Consumed - Breakfast: 100 Percent Meal Consumed - Lunch: 90 Percent Meal Consumed - Dinner: 100 Nutrition Comment: pt. asleep Subjective Subjective Patient was seen & assessed and interval progress reviewed with treatment team Treatment team noted patient continues to participate in the milieu and has tolerated his medication yesterday and this AM so far, that the family meeting went well as patient has reported. SOcial work staff noted family is highly intellectual and there is obvious isolation of affect in the meeting by mother, father and patient. Montse today notes "I am okay" not feeling awesome but not as depressed, no current SI at this time. He did have about 60min latency falling to sleep which is usual for home and here, no worse, no better on effexor IR bid. He then does fall asleep but easily woken when nurses are rounding and returns to sleep. He denies feeling anxious or distressed. Discussed sleep hygiene and personality traits and risk of isolation of affect used to exclusion. He states he is interested in learning what he can while here and interested in aftercare with therapist and prescriber after discharge. He denies physical concerns for GI, cognition, or neuro on ROS. He denies SE to medications Physical Exam Psychiatric Orientation: alert and oriented x 3 Apperance: appropriately dressed same flannel and t-shirt and pants as yesterday, hair is in poly tail appears clean Eye Contact: good eye contact Motor Behavior: steady gait and station Speech: normal rate/rhythm/volume of speech even measured tone and manner of speaking Affect: + blunted affect stoic minimal verbal or facial expressions of emotion "okay" Thought Process: goal directed thought process, linear/logical thought process and clear/coherent thought process very measured and even, communicates about all topics with same facial expression and tone no matter how distant or personal to him Suicidal Thoughts: denies suicidal thoughts Homicidal Thoughts: denies homicidal thoughts Hallucinations: no auditory hallucinations and no visual hallucinations Cognition: recent memory grossly intact Estimated Intelligence: + above average estimated intelligence Insight: good insight Judgement: good judgement Vital Signs (Past 24 Hours) Last Vital Signs Temp 36.5 C 07/19/19 06:57 Pulse 92 H 07/19/19 06:59 Resp 16 07/19/19 06:57 BP 121/87 07/19/19 06:59 Pulse Ox 99 07/16/19 01:36 Results & Data Laboratory Results Laboratory Results - last 24 hr 07/15/19 20:25 U Marijuana THC Carboxy 1930 A Current Inpatient Medications Current Inpatient Medications: Current Inpatient Medications Acetaminophen (Tylenol) 650 mg PO Q4H PRN PRN Reason: Headache or Minor Fever Stop: 08/14/19 22:23 Al Hydrox/Mg Hydrox/Simethicone (Maalox) 30 ml PO Q4H PRN PRN Reason: GI Upset Stop: 08/14/19 22:23 Bismuth Subsalicylate (Kaopectate) 15 ml PO PRN PRN PRN Reason: Loose Stool Stop: 08/14/19 22:23 Hydroxyzine HCl (Vistaril) 50 mg PO HSZ PRN PRN Reason: Insomnia Stop: 08/14/19 22:23 Hydroxyzine HCl (Vistaril) 25 mg PO Q4H PRN PRN Reason: Anxiety Stop: 08/14/19 22:23 Magnesium Hydroxide (Milk Of Magnesia) 30 ml PO DAILY PRN PRN Reason: Constipation Stop: 08/14/19 22:23 Sodium Chloride ([place] Nasal) 1 - 2 sprays NA PRN PRN PRN Reason: Nasal Dryness/Congestion Stop: 08/14/19 22:23 Venlafaxine HCl (Effexor) 37.5 mg PO BID ROCKY Stop: 08/17/19 08:59 Last Admin: 07/19/19 08:39 Dose: 37.5 mg Documented by: Mental Health & Subst Abuse Tx Psychiatrist Name of Psychiatrist: Everardo Carrero Psychiatrist's Date of Appointment with Psychiatrist: 08/06/19 Time of Appointment with Psychiatrist: 2:30 pm Psychiatric Appointment Comment: [id number], [place], [place] Therapist Name of Therapist: [employer] Insulation Board Back Tender Name of Insulation Board Back Tender: Denies Post Discharge Appointments Primary Care Physician Name Of Family Doctor: Denied - Goes to Urgent Care when needed. Contact Information Discharge Discharge Address: [facility] [address], [place] [address] CPT Code CPT Code 86102 [phone] [id number]
[2019-07-20] MEDS ORDERED: VENLAFAXINE HCL XR 75 MG CAPXR PO SCH (09:00)
--- NOTE | 2019-07-20 10:07 | Discharge Summary ---
Date of Service July 20, 2019 History of Present Illness On my assessment, he was seen withPatient presented to the ER 07/15/2019 on referral from [facility], where he was seen for an urgent appointment on referral from [facility]. He reported severe depression and "incessant suicidal thoughts," occurring on a daily basis with multiple plans, including cutting himself, overdosing on pills, or crashing his car. He told Staff that he held a knife to his throat for 30 minutes earlier in the day, and told ER staff he had been holding a knife to his throat or wrists on a daily basis. In the ER, he reported increased suicidal thoughts for the past 3 weeks, and said he was thinking about suicide almost all the time. He reported poor sleep, 4-6 hours a night on a good night. Appetite was also poor, he said he had not eaten anything for days, and BMI is 18.6. He reported worsening mood at the beginning of summer after breakup, and constant suicidal thoughts for the past 3 weeks. He stated that the morning of presentation he "had another bad morning," and was holding a knife to his throat. He reported engaging in "very damaging actions over the past 3 weeks." CBC showed WBC 11.84, CMP with elevated total bilirubin 1.7, TSH normal 0.689, UA with 1+ protein, trace ketones, trace leukocyte esterase, 10-20 epithelial cells; toxicology screen positive for THC, and MRSA screen negative. He said he knows he needs help for his psychiatric problems, but did not want to stay in the hospital. He was educated regarding voluntary and involuntary hospitalization, and refused recommendations for inpatient treatment, so was involuntarily committed with a petition from [facility] staff. He was angry when brought to the unit, told nursing staff that he was being sent to penitentiary and they were jailers, and stated "I asked for help, this isn't help, I should be allowed to have my thoughts." He stared intently at staff, was posturing, pacing in the halls, stomping and talking loudly, and disrupting other patients' sleep on the unit. He refused offers of as needed medication for sleep. [facility] records indicate that he has had 2 retroactive medical withdrawals. On my assessment, he was seen with Vince Quintana, social work international affairs vice president. He was partially cooperative with the assessment, but became increasingly agitated and hostile at the end. He reports worsening depression and suicidal ideation, and states he contacted S because he "just wanted some advice." He states he is very angry about being hospitalized, believes he is in penitentiary and that hospital staff are "jailers," and says there is no way he can get better when he is being forced to be here. He admits that he has been scared by how depressed he has been in his daily suicidal thoughts and acts. He states he wanted to get into outpatient treatment, and his "looked into it" for years, but has not actually scheduled with anybody and cannot explain why. He is interested in therapy and medication, and willing for outpatient treatment referrals. He describes his depression is "coming and going since high school," but states mood has been worsening since 2016. He says he medically withdrew the first semester he tried to come back to school after taking several years off, as he was unable to function. He says he has been having "very severe issues recently, and I would like to see that change. He endorses "suicidal thoughts and actions," and cannot say how he would be safe outside of the hospital. He denies clear triggers 3 weeks ago, when suicidal thoughts worsen, but reports ongoing stress due to school, and a breakup with his ex-girlfriend at the beginning of summer. The are still friends that live together, and he states that she is "going through a hard time." He is also worried about his parents, as they are "getting older, and my dad's going blind." He states his parents are aware he has depression, but not the extent to which he has been struggling recently. Reports support from multiple friends who lives locally, and states he plans to stay in school and in his apartment in [place]. He denies a history of manic symptoms, hallucinations, paranoia, OCD, PTSD, and panic. He reports anxiety that consists of worrying, which worsens when mood is worse. He denies thoughts of harming others. He states that his friends and family are protective, and that he also wants to live because if he , "I wouldn't be helping anyone else." He enjoys reading and writing. He reports willingness to discuss antidepressant medications, and sign releases for his parents. He became increasingly angry and agitated at the end of the interview, demanding to be discharged immediately, and stating that he could not get better because he was involuntarily committed and being forced to be here. Spent a significant amount of time discussing the treatment that is offered here, reviewed with him that it is exactly what he is requesting in terms of treatment, and he acknowledged this, but continued to escalate, swearing and pacing in his room. Full history unable to be obtained due to agitation and hostility. Physical Exam Psychiatric Orientation: alert and cooperative Apperance: appropriately dressed, appropriately groomed and appeared stated age Eye Contact: good eye contact Motor Behavior: steady gait and station and no abnormal motor movements Speech: normal rate/rhythm/volume of speech Affect: euthymic affect and mood congruent with affect Mood: no depressed mood, no anxious mood and no angry mood Thought Process: goal directed thought process and linear/logical thought process Thought Content: reality based without delusions Suicidal Thoughts: denies suicidal thoughts Homicidal Thoughts: denies homicidal thoughts Hallucinations: no auditory hallucinations and no visual hallucinations Cognition: recent memory grossly intact, attention grossly intact and language grossly intact Estimated Intelligence: consistent with education level Insight: + fair insight Judgement: + fair judgement Vital Signs (Past 24 Hours) Last Vital Signs Temp 36.5 C 07/20/19 06:58 Pulse 89 07/20/19 06:58 Resp 18 07/20/19 06:58 BP 117/71 07/20/19 06:58 Pulse Ox 99 07/16/19 01:36 Principal Diagnosis Major depressive disorder, recurrent, severe without psychosis Rule out cyclothymia Cannabis use disorder Psychiatric Data Patient was hospitalized for 5 days. He was initially angry and hostile, demanding to be discharged immediately, and blaming others for his hospitalization. His parents came to visit with him, and he began to engage in treatment, attending and participating in groups and therapy. He agreed to a trial of venlafaxine XR, and although he had nausea and vomiting after his first dose, it did not recur and he tolerated it well. He initially refused a family meeting, but later agreed, and had a meeting with his parents and the aids social worker on 07/18/2019. They discussed the stressors that led to worsening mood, including academics and the breakup with his girlfriend. They discussed his use of intellectualization as a coping mechanism, that it was a strength, and his need to work on communication, as well as how his parents could be supportive moving forward. Parents confirmed that he did not have medications or weapons in his apartment, and that they were planning on staying in town for the next 5 days to help support him. We discussed his academics, he stated his plan was to continue the semester. Care was coordinated with [facility] and to the [place], and follow-up with the Office of Student Care and Advocacy arranged. He was referred for outpatient psychiatric care and therapy. His mood continued to improve throughout hospitalization, he reported resolution of suicidal thoughts, did not engage in self-injurious behavior and denied thoughts or urges to harm himself, was attending and participating appropriately in groups and therapy. His appetite improved throughout hospitalization, and he was eating well. Day of Discharge Assessment Staff report the patient has been attending groups and therapy, interacting appropriately with staff and peers, reporting improved mood and denying SI. He is tending to ADLs independently. On my assessment he reports mood is "much better," and denies suicidal thoughts. He is tolerating the venlafaxine well, and states willingness to follow up with outpatient therapy and psychiatric care. He reports feeling hopeful and is making plans for the future, and is looking forward to returning to school. He states that treatment here has been helpful, and he thinks that it is been beneficial for him to "be in a supportive environment" to participate and interact in groups. He reports long-standing difficulties with concentration, and wonders if he has ADHD. He denies any acute safety concerns, and is able to review his discharge safety plan. Transition of Care Transition Of Care Record: was reviewed with the patient Advance Directives Advance Directives Information Provided: Yes Advance Directives: No Mental Health Advance Directive: No Advance Directives on File: No Living Will: No Power of Wagon Driver: No Advance Directives Reason:: Declines as Mental Health Visit. Risk Factors Assessment Risk factors were mitigated by involuntary admission to the inpatient unit, providing education about his diagnoses and the recommended treatment, use of medications to target depression, education about the risks of substance use and recommendations for abstinence, involving him in groups and therapy, working on healthy coping skills and a discharge safety plan, family meeting with parents, and referral for outpatient treatment. He has demonstrated improvement in mood, resolution of suicidal thoughts, has been engaged in groups and interacting appropriately with staff and peers, and stating willingness to follow up with outpatient treatment. His 302 involuntary commitment will today, and he is no longer at acute risk of harm to himself, so can be managed as an outpatient at this time. Male: Yes : Yes Do You Have Access To A Gun?: No Health Problems: No Mental Health Diagnoses: Yes Substance Use Disorders: Yes Previous Attempt: Yes Previous Attempt; Highly Lethal: No Previous Attempt; Planned: Yes Previous Attempt; Didn't Tell Anyone: Yes Family History of Suicide: Yes Previous Psychiatric Hospitalization: No Hopelessness: Yes Smoker: No Protective Factors Assessment : No Responsible for Young Children: No Employed: No Stable Relationships: No Supportive Family: Yes Good Rapport with Provider: No Tobacco Cessation at Discharge Tobacco Cessation Medication Prescribed at Discharge: Not Applicable/Non-Smoker Total Time Total Time Spent: Greater Than 30 Minutes Total Time Includes: Examination of the patient, Discharge Planning and Medication Reconciliation Discharge Data Lab Results 07/15/19 07/15/19 07/15/19 18:29 18:29 18:29 WBC 11.84 H RBC 5.02 Hgb 15.7 Hct 43.5 MCV 86.7 MCH 31.3 MCHC 36.1 H RDW Std Deviation 40.9 RDW Coeff of Marquis 12.8 Plt Count 230 MPV 9.2 Immature Gran % (Auto) 0.2 Neut % (Auto) 63.1 Lymph % (Auto) 28.2 [place] % (Auto) 6.8 Eos % (Auto) 1.3 Baso % (Auto) 0.4 Immature Gran # (Auto) 0.02 Neut # (Auto) 7.48 H Lymph # (Auto) 3.34 [place] # (Auto) 0.80 H Eos # (Auto) 0.15 Baso # (Auto) 0.05 Sodium 140 Potassium 4.0 Chloride 106 Carbon Dioxide 29 Anion Gap 6.0 BUN 13 Creatinine 1.01 Est Cr Clr Drug Dosing 98.5 Est GFR ( Amer) 119.3 Est GFR (Non-Af Amer) 102.9 BUN/Creatinine Ratio 13.1 Glucose 81 Calcium 9.9 Total Bilirubin 1.7 H AST 14 L ALT 21 Alkaline Phosphatase 94 Total Protein 8.4 H Albumin 4.7 Globulin 3.7 Albumin/Globulin Ratio 1.3 TSH 0.689 Urine Color Urine Appearance Urine pH Ur Specific [place] Urine Protein Urine Glucose (UA) Urine Ketones Urine Blood Urine Nitrite Urine Bilirubin Urine Urobilinogen Ur Leukocyte Esterase Urine WBC (Auto) Urine RBC (Auto) U Hyaline Cast (Auto) U Epithel Cells (Auto) Urine Bacteria (Auto) Nasal Screen MRSA (PCR) Salicylates < 1.7 L Urine Opiates Screen Ur Methadone, Qual Acetaminophen < 2 L Urine Barbiturates Ur Phencyclidine (PCP) U Amphetamin/Meth Scrn MDMA (Ecstasy) Screen U Benzodiazepines Scrn Ur Cocaine Metabolite U Marijuana (THC) Screen U Marijuana THC Carboxy Ethyl Alcohol mg/dL 07/15/19 07/15/19 07/15/19 18:29 20:25 20:25 WBC RBC Hgb Hct MCV MCH MCHC RDW Std Deviation RDW Coeff of Marquis Plt Count MPV Immature Gran % (Auto) Neut % (Auto) Lymph % (Auto) [place] % (Auto) Eos % (Auto) Baso % (Auto) Immature Gran # (Auto) Neut # (Auto) Lymph # (Auto) [place] # (Auto) Eos # (Auto) Baso # (Auto) Sodium Potassium Chloride Carbon Dioxide Anion Gap BUN Creatinine Est Cr Clr Drug Dosing Est GFR ( Amer) Est GFR (Non-Af Amer) BUN/Creatinine Ratio Glucose Calcium Total Bilirubin AST ALT Alkaline Phosphatase Total Protein Albumin Globulin Albumin/Globulin Ratio TSH Urine Color [place] Urine Appearance Clear Urine pH 5.0 Ur Specific [place] 1.029 Urine Protein 1+ H Urine Glucose (UA) Negative Urine Ketones Trace H Urine Blood Negative Urine Nitrite Negative Urine Bilirubin Negative Urine Urobilinogen Negative Ur Leukocyte Esterase Trace H Urine WBC (Auto) 1-5 Urine RBC (Auto) 0-4 U Hyaline Cast (Auto) 10-30 H U Epithel Cells (Auto) 10-20 H Urine Bacteria (Auto) Negative Nasal Screen MRSA (PCR) Salicylates Urine Opiates Screen Neg Ur Methadone, Qual Neg Acetaminophen Urine Barbiturates Neg Ur Phencyclidine (PCP) Neg U Amphetamin/Meth Scrn Neg MDMA (Ecstasy) Screen Neg U Benzodiazepines Scrn Neg Ur Cocaine Metabolite Neg U Marijuana (THC) Screen Pos H U Marijuana THC Carboxy Ethyl Alcohol mg/dL < 3.0 07/15/19 07/15/19 20:25 23:21 WBC RBC Hgb Hct MCV MCH MCHC RDW Std Deviation RDW Coeff of Marquis Plt Count MPV Immature Gran % (Auto) Neut % (Auto) Lymph % (Auto) [place] % (Auto) Eos % (Auto) Baso % (Auto) Immature Gran # (Auto) Neut # (Auto) Lymph # (Auto) [place] # (Auto) Eos # (Auto) Baso # (Auto) Sodium Potassium Chloride Carbon Dioxide Anion Gap BUN Creatinine Est Cr Clr Drug Dosing Est GFR ( Amer) Est GFR (Non-Af Amer) BUN/Creatinine Ratio Glucose Calcium Total Bilirubin AST ALT Alkaline Phosphatase Total Protein Albumin Globulin Albumin/Globulin Ratio TSH Urine Color Urine Appearance Urine pH Ur Specific [place] Urine Protein Urine Glucose (UA) Urine Ketones Urine Blood Urine Nitrite Urine Bilirubin Urine Urobilinogen Ur Leukocyte Esterase Urine WBC (Auto) Urine RBC (Auto) U Hyaline Cast (Auto) U Epithel Cells (Auto) Urine Bacteria (Auto) Nasal Screen MRSA (PCR) Negative Salicylates Urine Opiates Screen Ur Methadone, Qual Acetaminophen Urine Barbiturates Ur Phencyclidine (PCP) U Amphetamin/Meth Scrn MDMA (Ecstasy) Screen U Benzodiazepines Scrn Ur Cocaine Metabolite U Marijuana (THC) Screen U Marijuana THC Carboxy 1930 A Ethyl Alcohol mg/dL Hospital Course (1) Suicidal ideation: Every 15 minute checks for safety Inpatient treatment as below 07/17/19 -Today, the patient reports that he has not had any thoughts of suicide and that, in fact, this is the first day in approximately 3 weeks that that he has not had thoughts of suicide. He reports that he did have thoughts of suicide yesterday, but was able to dismiss the thoughts quickly and "move on" to other thoughts. -He notes a long-standing history of suicidal thoughts, and tells us that he is never completely free of suicidal thoughts, at least fleeting suicidal thoughts, even when his mood is not depressed. -In addition, the patient reports today that although he has made suicide attempts in the past, he feels that it is the actual act of "ending it all" (rather than any real consideration of no longer existing) that appeals to him. And, within this context, he notes that in each instance in which she has taken an overdose he has promptly induced emesis. 07/18 - continue observation to assure that his behavior and verbalization are congruent given his past history of not disclosing distress or SI, or SA's. TO date the improvement seems genuine. (2) Depression: 07/16 -patient meets criteria for major depressive disorder, which he reports has been ongoing for many years, and for which he has not received treatment since high school. Reports failure of 2 previous SSRI trials, so discussed a trial of venlafaxine XR. Reviewed risks, benefits, side effects, and provided him with an up-to-date patient handout on the medication. Unfortunately, he became increasingly agitated and we were unable to complete the discussion, but this can be revisited once he has calmed down. -Recommend family meeting with parents, and ask social work to obtain collateral from them regarding his past history. Suspect ASD versus PD comorbidity. -Continue involuntary commitments on a 302, consider need to file for 303 involuntary commitment. -Encourage patient to attend and participate in groups and therapy, work on healthy coping skills and discharge safety plan. -Refer for outpatient psychiatric care and therapy. 07/17/19 -The patient reports recurrent episodes of depression that last, typically, a number of months, but generally resolved, at least briefly. Of particular note today is his report that on at least 3 occasions in the past he has had short- lived episodes during which she has parents increased productivity, expansive mood, decreased desire for sleep, increased energy, and rapid thoughts. For example, he reports that on at least one such occasion he sat down and wrote approximately 20,000 words of a novel in a single sitting. When asked if he had subsequently reviewed his writing, he said that the writing "made sense," but that what he produced might not have been as good as he thought it was when he was riding it. -We discussed treatment options for depression as well as treatment options for cyclothymia. He indicates that he feels that his primary problem is depression and notes that although he has had periods as described above of increased productivity, he cannot associate these periods with any significant dysfunction in any sphere of endeavor. Accordingly, his primary object is to be treated for depression. -We discussed various medication options, and agreed to a trial of venlafaxine 37.5 mg. We will provide a test dose today and, as tolerated continue venlafaxine 37.5 mg twice a day beginning tomorrow. -The patient is quite intelligent and is certainly a candidate for individual psychotherapy. However, he does tend to intellectualize, and we agree that this may need to be addressed in psychotherapy. 07/18 - continue effexor IR bid at this time watching for tolerabiltiy and mood switching, could convert to XR if he shows tolerability for ease of dosing, watch sleep concerns he is aware hydroxyzine is available - will need to set up aftercare appt on Saturday when outpatient offices open for psychiatry and psychotherapy 07/19 - will change venlafaxine from IR to XR on Friday 07/20 as he is tolerating it - gave information on sleep kyle, and Shelly Cohn IST personality as a point of learning and conversation and discussion of ways isolation of affect helps him but how working in therapy on developing his "emoting muscle" may be worth the time and effort so he can use it when he needs/wants to. Handouts given (3) Cannabis abuse: Patient stopped smoking marijuana recently due to concerns it was worsening mood and suicidal thoughts. Continue to provide education and support of abstinence. Avoid prescription of controlled substances. Mental Health & Subst Abuse Tx Psychiatrist Name of Psychiatrist: [facility]rist's Date of Appointment with Psychiatrist: 08/06/19 Time of Appointment with Psychiatrist: 2:30 pm Psychiatric Appointment Comment: [address] [facility], [place], [place] Psychiatrist Release of Information: Obtained, Reviewed and Signed Therapist Name of Therapist: Jike Xueyuan Therapist's Therapy Appointment Comment: [address], [place] [address] Therapist Release of Information: Obtained, Reviewed and Signed Service Unit Operator Oil Well Name of Service Unit Operator [employer] [facility]: [facility]acy - [facility] Phone Number for Service Unit Operator Oil Well: [phone] Date of Appointment with Service Unit Operator Oil Well: 07/22/19 Time of Appointment with Service Unit Operator Oil Well: 1:30am Case Management Appointment Comment: [address] [place] [address] Post Discharge Appointments Primary Care Physician Name Of Family Doctor: Denied - Goes to Urgent Care when needed. Smoking Cessation Counseling Tobacco Cessation Medication Prescribed at Discharge: Not Applicable/Non-Smoker Contact Information Discharge Discharge Address: [address], [address], [place] [address] Discharge Plan Discharge Items Patient Disposition: Home - Self-Care Reason For Visit: MDR Discharge Diagnosis: Major depressive disorder, recurrent, severe without psychosis Cannabis use disorder Activity: Per Instructions section Non-emergency contact: Primary Care Provider, Psychiatrist and Therapist Call non-emergency contact if: you have any medication questions and your symptoms worsen Follow-up/Referrals: [facility] [Primary Care Provider] - Diet: Regular Addtl Attending Provider Instructions: SPECIAL CARE INSTRUCTIONS: 1. Follow through with your scheduled aftercare appointments. If unable to keep an appointment, please call to reschedule. 2. Take your medication only as prescribed. Medication should not be changed or stopped without the approval of your doctor. In the event of worsening symptoms or concerns about side effects, contact your doctor immediately. 3. Utilize new healthy coping skills, anger management skills, and stress management skills learned during your hospitalization. Journal feelings and process them with a support person. Identify stressors or situations that may result in relapse, deterioration or inappropriate behaviors and develop a plan to deal with those issues. 4. If your coping skills are ineffective and you are in crisis, contact your outpatient providers for direction. If unable to reach your providers, please call the CAN HELP LINE AT or go to the closest Emergency Room. 5. Avoid alcohol and un-prescribed drugs. 6. You have been provided with the Mental Health Advance Directives Pamphlet for your review. AFTERCARE APPOINTMENTS: * Please call your insurance company prior to your scheduled appointment to confirm your aftercare providers are covered. Take your insurance information to your appointments. WHO TO CALL AND WHEN: Medical Emergencies: For questions or emergencies related to your hospital stay, please contact the Inpatient Behavioral Health Unit at [phone]. A mechanical piping designer is on-call 22/04 for the Behavioral Health Unit for emergencies At any time you feel your situation is an emergency, you may also call 911 immediately. Your Doctors Instructions noted above were prepared by provider Soni Mays MD. Pending Studies at Discharge: No Stand-Alone Forms: My [facility] Medications and DC Order Prescriptions: New venlafaxine 75 mg Capsule,Extended Release 24hr 75 mg PO QAM Qty: 30 RF: 0 Discharge Orders: Discharge Order (Routine); Ordered 07/20/19 Ordered By: Soni Mays Admission Data Admit Date/Time: 07/15/19 22:24 Attending Provider: Soni Mays Admit Provider: Ced Goddard Primary Care Provider[facility] Other Interventions: PSY Interdisciplinary Discharge Planning Last Done: 07/20/19 09:44 Coding Level of Care Code 14604 D/C day mgmt > 30 min Diagnoses Suicidal ideation R45.851 Depression F32.9 Cannabis abuse F12.10
== END 2019-07-20 12:05 | disposition home or self-care (01) | DRG 885 ==
LOC: ED 17:41 → 3S 22:24